=== PATIENT | male | born 1995 | race Caucasian/White ===

== ENCOUNTER 2020-06-03 02:22 | Emergency (ER) | payer MEDICAID, SELFPAY ==
[2020-06-03 02:37] VITALS: BP 200/96; PULSE 98; RESP 16; TEMP 36.9; O2SAT 97; BMI 31.2
--- NOTE | 2020-06-03 02:46 | XR_ITS ---
PROCEDURE: XR ANKLE LT MIN 3V CLINICAL INDICATION: edema Pain and discoloration COMPARISON: No exams were available for comparison FINDINGS: Mild soft tissue swelling laterally. No fracture or dislocation. No lytic or blastic change. IMPRESSION: Mild lateral soft tissue swelling Dictated by: Raji Sanders MD 06/03/2020 06:59 Raji Sanders MD in [place] 06/03/2020 06:59
--- NOTE | 2020-06-03 02:46 | XR_ITS ---
PROCEDURE: XR FOOT LT MIN 3V CLINICAL INDICATION: discoloration Pain COMPARISON: CR FTR3 FOOT-RT-3 VIEWS from 07/06/2015 CR FTR3 FOOT-RT-3 VIEWS from 02/28/2016 FINDINGS: No fracture or dislocation. No lytic or blastic change. There is normal mineralization. The joint spaces are well-preserved. No significant degenerative/arthritic changes. No erosive changes evident. Other findings:None. IMPRESSION: No acute findings. Dictated by: Raji Sanders MD 06/03/2020 07:00 Raji Sanders MD in [place] 06/03/2020 07:00
--- NOTE | 2020-06-03 02:53 | PC.NURSE ---
Pt states he started having cramps in the left lower leg , bvut noticed edema and discoloration tonight. Pt's left ankle has non-pitting edema and delayed cap refill in foot and toes >5sec denies pain and states the sensation is the same in both feet. Negative Homans sign. Pedal pulse palpable.
[2020-06-03 02:56] LABS: Basophils # 0.1 K/mm3 (0-0.2); Basophils % 0.5 % (0.1-2.0); Eosinophils # 0.4 K/mm3 (0.0-0.4); Eosinophils % 3.6 % (0.1-12.0); Hematocrit 45.4 % (42.0-52.0); Lymphocytes % 25.8 % (10-50); Mean Corpuscular Volume 84.7 fl (80-94); Mean Platelet Volume 7.3 fl (7.4-10.4); Monocytes # 0.7 K/mm3 (0.1-1.0); Monocytes % 5.8 % (1.7-9.3); Neutrophils # 7.4 K/mm3 (1.8-7.8); Neutrophils % 64.3 % (37.0-80.0); Platelet Count 342 K/mm3 (142-424); Red Blood Count 5.36 M/mm3 (4.60-6.20); Red Cell Distribution Width 12.9 % (11.5-17.5); White Blood Count 11.5 K/mm3 (4.8-10.8)
--- NOTE | 2020-06-03 03:00 | HMH.EDLOEX ---
ED Disposition Clinical Impression: Swelling of left foot, Elevated d-dimer Disposition: Home, Self-Care Condition on Discharge: Good Instructions: DI for Foot Pain Additional Instructions: will obtain doppler and ask pt to see podiatry Referrals: Man Morse MD [Primary Care Provider] - - Critical Care Critical Care Time: No Attestation: On 06/03/20, the high probability of a clinically significant, sudden or life threatening deterioration of the following system(s) required my full and direct attention, intervention and personal management. The time I documented below is in addition to time spent performing reported procedures but includes the following listed in this critical care notation. Medical Decision Making - Medical Records Medical records reviewed: Yes: I reviewed the patient's medical records. - Marcus Inquiry Pt receiving controlled substance: No Vital Signs: 06/03/20 02:37 Temperature 98.5 F Temperature Source Oral Pulse Rate [Right] 98 H Respiratory Rate 16 Blood Pressure [Right Arm] 200/96 H Blood Pressure Mean [Right Arm] 130 Blood Pressure Source [Right Arm] Manual Cuff/ Auscultation 02 Sat by Pulse Oximetry 97 Oxygen Delivery Method Room Air - Lab Data Lab results reviewed: Yes: I reviewed the patient's lab results. Lab Results 06/03/20 02:35: WBC 11.5 H, RBC 5.36, Hgb 15.0, Hct 45.4, MCV 84.7, MCH 28.0, MCHC 33.0, RDW 12.9, Plt Count 342, MPV 7.3 L, Neut % (Auto) 64.3, Lymph % (Auto) 25.8, [place] % (Auto) 5.8, Eos % (Auto) 3.6, Baso % (Auto) 0.5, Neut # (Auto) 7.4, Lymph # (Auto) 3.0, [place] # (Auto) 0.7, Eos # (Auto) 0.4, Baso # (Auto) 0.1, ESR 24 H 06/03/20 02:35: Sodium 143, Potassium 3.9, Chloride 105, Carbon Dioxide 27, Anion Gap 14.9, BUN 14, Creatinine 0.90, Estimated Creat Clear 199, Estimated GFR 102, Est GFR ( Amer) 123, Glucose 112 H, Calcium 10.1, Total Bilirubin 0.4, AST 41, ALT 36, Alkaline Phosphatase 93, C-Reactive Protein 51.8 H, Total Protein 8.6 H, Albumin 4.9, Globulin 3.7 H, Albumin/Globulin Ratio 1.3, Procalcitonin 0.040 06/03/20 02:35: Uric Acid 10.1 H 06/03/20 02:35: D-Dimer 1.24 H Result diagrams: 06/03/20 02:35 06/03/20 02:35 Orders (Tests/Meds): ED MEDICATIONS Discontinued Medications Generic Name Dose Route Start Last Admin Trade Name Sarah PRN Reason Stop Dose Admin Enoxaparin Sodium 110 mg 06/03/20 04:21 06/03/20 04:23 Enoxaparin 120mg/0.8ml Syringe SQ 06/03/20 04:22 110 mg ONCE ONE Administration Ketorolac Tromethamine 30 mg 06/03/20 03:15 06/03/20 03:23 Ketorolac 30mg/Ml Vial IV 06/03/20 03:16 30 mg ONCE ONE Administration Methylprednisolone Sodium Succinate 125 mg 06/03/20 03:15 06/03/20 03:22 Methylprednisolone Sod Succ 125mg Vial IV 06/03/20 03:16 125 mg ONCE ONE Administration ORDERS Category Date Time Status Ankle XR - Left minimum 3 Views [XR ankle LT min 3V] Exams 06/03/20 02:46 Taken Stat XR foot LT min 3V Stat Exams 06/03/20 02:46 Taken - Radiology Data #1 Image(s): Ankle, Foot/Toes Image Reviewed: Yes I reviewed the patient's radiology image Preliminary Findings: No Fracture Seen Medical Decision Narrative: will arrange venous doppler and see podiatry Lower Extremity Injury HPI - General Chief Complaint: Extremity Problem,Nontraumatic Stated Complaint: LFT foot/ankle swollen High BP Time Seen by Provider: 06/03/20 02:45 Mode of Arrival: Ambulatory Source of Information: Patient, Parent(s), Medical Record Limitations: No Limitations Description of Symptoms (Recalled from ER Triage Doc. by RN): Pt states he had what felt like a bad cramp in his lower leg starting 3 days ago and tonight foot become discolored. Pt denies pain and has negative Irina sign. - History of Present Illness HPI Narrative: pt with lt foot swollen over the last few days with no trauma - no hx of dvt - no hx of gout complaint: foot injury Onset (ago): hour(s) Injury: Left
[2020-06-03 03:02] LABS: Uric Acid 10.1 mg/dl (3.5-8.5)
[2020-06-03 03:03] LABS: Alanine Aminotransferase 36 U/L (12-78); Albumin Level 4.9 g/dl (3.5-5.0); Albumin/Globulin Ratio 1.3 (1.1-1.8); Alkaline Phosphatase 93 U/L (38-126); Anion Gap 14.9 mEq/L (5-15); Aspartate Amino Transferase 41 U/L (17-59); Bilirubin,Total 0.4 mg/dl (0.2-1.3); Blood Urea Nitrogen 14 mg/dl (9-20); Calcium 10.1 mg/dl (8.4-10.2); Carbon Dioxide 27 mmol/L (22.0-30.0); Chloride 105 mmol/L (98-107); Creatinine Clearance Estimated 199 mL/min (50-200); Estimated Glomerular Filt Rate 102 ml/min (>60); GFR (African American) 123 ML/MIN (>60); Globulin 3.7 g/dL (1.3-3.2); Glucose 112 mg/dl (74-100); Potassium 3.9 mmoL/L (3.5-5.1); Sodium 143 mmol/L (136-145); Total Protein,Serum 8.6 g/dl (6.3-8.2)
[2020-06-03 03:08] LABS: C-Reactive Protein 51.8 mg/L (0-4)
[2020-06-03 03:20] LABS: Erythrocyte Sedimentation Rate 24 mm/hr (0-15)
[2020-06-03 03:33] LABS: D-Dimer 1.24 ug/mL (0.0-0.5)
--- NOTE | 2020-06-03 04:20 | PC.NURSE ---
Lovenox dosing per Huong in Pharmacy
[2020-06-03 04:47] VITALS: BP 210/110; PULSE 86; RESP 16; O2SAT 97
[2020-06-03 04:57] VITALS: BP 210/97; PULSE 88; RESP 16; TEMP 36.9; O2SAT 97
== END 2020-06-03 05:02 | disposition home or self-care (01) ==
PROVIDERS: Emergency Provider Emergency Medicine; PCP Internal Medicine Adolescent Medicine
DX: M79.89 Other specified soft tissue disorders (principal); R03.0 Elevated blood-pressure reading, without diagnosis of hypertension
CPT/HCPCS: 73610; 73630; 80053; 84145; 84550; 85025; 85378; 85651; 86140; 96372; 96374; 96375; 99283

== ENCOUNTER → 2020-06-03 11:52 | Outpatient (CLI) | payer MEDICAID, SELFPAY ==
--- NOTE | 2020-06-03 11:53 | CA_ITS ---
APPROVED REPORT Left Lower Extremity Venous Study for DVT. Scrapper: TRAY Indications Lower Extremity Pain: Left Lower Extremity Edema: Left REDNESS LOWER EXTREMITY Vein Imaging CFV (L): compressive, spontaneous, phasic, augmentation, SFJ (L): compressive, spontaneous, phasic, augmentation FEM (L): compressive, spontaneous, phasic, augmentation POP (L): compressive, spontaneous, phasic, augmentation DFV (L): compressive, spontaneous, phasic, augmentation PTV (L): Compressible GSV (L): Compressible SSV (L): Compressible Peroneals (L):Compressible GAS (L): Compressible Findings No evidence of DVT or superficial thrombophlebitis in the veins scanned of the left lower extremity. Conclusion No evidence of DVT or superficial thrombophlebitis in the veins scanned of the left lower extremity. Electronically signed by : Raji Sanders MD 06/04/2020 14:57:16
== END ==
PROVIDERS: PCP Internal Medicine Adolescent Medicine; Visit Provider Emergency Medicine
DX: M79.662 Pain in left lower leg (principal); M79.89 Other specified soft tissue disorders
CPT/HCPCS: 93971

== ENCOUNTER 2020-07-23 16:27 | Emergency (ER) | payer MEDICAID, SELFPAY ==
--- NOTE | 2020-07-23 16:52 | XR_ITS ---
PROCEDURE INFORMATION: Exam: XR Right Shoulder Exam date and time: 07/23/2020 4:52 PM Age: 24 years old Clinical indication: Injury or trauma; Other: Lifiting something heavy; Blunt trauma (contusions or hematomas); Shoulder; Right; Additional info: Lifting weights injury TECHNIQUE: Imaging protocol: XR Right shoulder. Views: 2 or more views. COMPARISON: CR ELBR3 ELBOW-RT-3 VIEWS 01/15/2016 2:02 PM FINDINGS: Bones/joints: Normal. Soft tissues: Normal. IMPRESSION: No acute findings.
[2020-07-23 16:53] VITALS: BP 136/86; PULSE 96; RESP 19; TEMP 37.1; O2SAT 100; BMI 31.2
[2020-07-23 17:18] LABS: Uric Acid 10.4 mg/dl (3.5-8.5)
--- NOTE | 2020-07-23 17:19 | HMH.EDUTC ---
[facility] – [place], [place] Disposition Clinical Impression: Shoulder strain Qualifiers: Encounter type: initial encounter Laterality: right Qualified Code(s): S46.911A - Strain of unspecified muscle, fascia and tendon at shoulder and upper arm level, right arm, initial encounter Gout attack Qualifiers: Gout site: elbow Gout etiology: unspecified cause Laterality: left Qualified Code(s): M10.9 - Gout, unspecified Disposition: Home, Self-Care Condition on Discharge: Good Instructions: Gout, DI for Gout, How To Perform RICE (Rest, Ice, Compress, Elevate), DI for Shoulder Pain Additional Instructions: *RICE, Rest the extremity, Ice 15-20 minutes 3-4 times daily, Compress- wear the rosalind wrap as discussed as much as possible to help reduce swelling and pain, Elevate the extremity when at rest *Remember you had a Toradol shot in the clinic today, which is similar to Endomethacin so do not start Endomethacin until tomorrow *Not additional anti-inflammatory like motrin, aleve, advil with the above amount of Endomethacin. You can still take Tylenol every 4 hours as needed if you need something else for pain *Ice 20 minutes every 2 hours for the first 48 hours after the initial injury followed by moist heat every 20 minutes 3-4 times a day to affected area *Muscle relaxer every 8 hours as needed for muscle spasms but remember, it WILL cause drowsiness You cannot take it and drive, operate machinery or care for small children. *Keep this area active, no movement leads to more stiffness, However take it easy and avoid heavy lifting pushing or pulling *Follow up with you family doctor if no improvement for further treatment and for further evaluation and treatment of gout *Indomethacin every 8 hours as needed for pain an inflammation. Do not start until 07/24/20 If need something more can take Tylenol in between doses of Ibuprofen to help Immediately follow up with your family doctor for new or worsening of symptoms, or no noticeable improvement over the next 3-5 days Prescriptions: Cyclobenzaprine HCl [Flexeril 10mg tablet] 5 mg PO TID PRN #12 tab PRN Reason: Muscle Spasm Transmission Status: Received by [employer] #[id number] Indomethacin 50 mg PO TID #15 cap Transmission Status: Received by [employer] #[id number] Referrals: Man Morse MD [Primary Care Provider] - As needed Time of Disposition: 18:13 Medical Decision Making - Marcus Inquiry Pt receiving controlled substance: No Marcus was queried for this patient: No Vital Signs: 07/23/20 16:53 Temperature 98.8 F Temperature Source Oral Pulse Rate [Right Brachial] 96 H Respiratory Rate 19 Blood Pressure [Right Arm] 136/86 Blood Pressure Mean [Right Arm] 102 Blood Pressure Source [Right Arm] Automatic Cuff Blood Pressure Position [Right Arm] Sitting 02 Sat by Pulse Oximetry 100 Oxygen Delivery Method Room Air - Lab Data Lab Results 07/23/20 16:55: Uric Acid 10.4 H Orders (Tests/Meds): ED MEDICATIONS Discontinued Medications Generic Name Dose Route Start Last Admin Trade Name Freq PRN Reason Stop Dose Admin Ketorolac Tromethamine 60 mg 07/23/20 18:06 07/23/20 18:22 Ketorolac 60mg/2ml Vial IM 07/23/20 18:07 60 mg ONCE ONE Administration Methylprednisolone Sodium Succinate 125 mg 07/23/20 18:06 07/23/20 18:18 Methylprednisolone Sod Succ 125mg Vial IM 07/23/20 18:07 125 mg ONCE ONE Administration ORDERS Category Date Time Status XR shoulder RT min 2V Stat Exams 07/23/20 16:52 Taken - Radiology Data #1 Image(s): Shoulder (right) Image Reviewed: Yes I reviewed the patient's radiology image Preliminary Findings: No Fracture Seen [facility] – [place], [place] HPI - General Stated complaint: possible pulled muscle in R shoulder Time Seen by Provider: 07/23/20 17:19 Mode of Arrival: Ambulatory Source of Information: Patient Limitations: No Limitations Description of Symptoms (Recalled from Triage Doc. by RN): RIGHT SHOULDER PAIN X1 WEEK HEENT
[2020-07-23 18:37] VITALS: BP 136/86; PULSE 96; RESP 19; TEMP 37.1; O2SAT 100
== END 2020-07-23 18:38 | disposition home or self-care (01) ==
PROVIDERS: Emergency Provider Nurse Practitioner; PCP Internal Medicine Adolescent Medicine
DX: S46.911A Strain of unspecified muscle, fascia and tendon at shoulder and upper arm level, right arm, initial encounter (principal); X50.0XXA Overexertion from strenuous movement or load, initial encounter; Y92.89 Other specified places as the place of occurrence of the external cause; M1A.0220 Idiopathic chronic gout, left elbow, without tophus (tophi)
CPT/HCPCS: 73030; 84550; 96372; 99202; G0463

== ENCOUNTER → 2020-07-25 09:50 | Outpatient (CLI) | payer MEDICAID, SELFPAY ==
--- NOTE | 2020-07-25 10:03 | XR_ITS ---
PROCEDURE: XR HAND LT MIN 3V CLINICAL INDICATION: ARTHRITIS COMPARISON: No exams were available for comparison FINDINGS: No fracture or dislocation. No lytic or blastic change. There is normal mineralization. The joint spaces are well-preserved. No significant degenerative/arthritic changes. No erosive changes evident. Other findings:None. IMPRESSION: Negative left hand Dictated by: Raji Sanders MD 07/25/2020 10:16 Raji Sanders MD in [place] 07/25/2020 10:16
--- NOTE | 2020-07-25 10:03 | XR_ITS ---
PROCEDURE: XR HAND RT MIN 3V CLINICAL INDICATION: ARTHRITIS COMPARISON: No exams were available for comparison FINDINGS: No fracture or dislocation. No lytic or blastic change. There is normal mineralization. The joint spaces are well-preserved. No significant degenerative/arthritic changes. No erosive changes evident. Other findings:None. IMPRESSION: No acute findings. Dictated by: Raji Sanders MD 07/25/2020 10:15 Raji Sanders MD in [place] 07/25/2020 10:15
[2020-07-25 10:17] LABS: Basophils % 0.3 % (0.1-2.0); Eosinophils # 0.2 K/mm3 (0.0-0.4); Eosinophils % 1.6 % (0.1-12.0); Hematocrit 41.2 % (42.0-52.0); Hemoglobin 13.6 g/dL (14.1-18.0); Lymphocytes # 3.3 K/mm3 (0.7-4.5); Lymphocytes % 27.3 % (10-50); Mean Corpuscular Hemoglobin 27.7 pg (27.0-31.2); Monocytes # 0.6 K/mm3 (0.1-1.0); Monocytes % 4.8 % (1.7-9.3); Platelet Count 429 K/mm3 (142-424); Red Blood Count 4.91 M/mm3 (4.60-6.20); Red Cell Distribution Width 12.5 % (11.5-17.5); White Blood Count 12.2 K/mm3 (4.8-10.8)
[2020-07-25 11:18] LABS: Alanine Aminotransferase 46 U/L (12-78); Albumin Level 4.4 g/dl (3.5-5.0); Albumin/Globulin Ratio 1.4 (1.1-1.8); Alkaline Phosphatase 89 U/L (38-126); Anion Gap 15.4 mEq/L (5-15); Aspartate Amino Transferase 43 U/L (17-59); Bilirubin,Total 0.3 mg/dl (0.2-1.3); Blood Urea Nitrogen 16 mg/dl (9-20); Calcium 9.8 mg/dl (8.4-10.2); Carbon Dioxide 25 mmol/L (22.0-30.0); Chloride 107 mmol/L (98-107); Estimated Glomerular Filt Rate 102 ml/min (>60); GFR (African American) 123 ML/MIN (>60); Globulin 3.2 g/dL (1.3-3.2); Glucose 97 mg/dl (74-100); Potassium 4.4 mmoL/L (3.5-5.1); Sodium 143 mmol/L (136-145); Total Protein,Serum 7.6 g/dl (6.3-8.2)
[2020-07-25 11:23] LABS: C-Reactive Protein 41.9 mg/L (0-4)
[2020-07-25 18:00] LABS: Erythrocyte Sedimentation Rate 53 mm/hr (0-15)
[2020-07-26 08:43] LABS: RA Latex Turbid. 11.3 IU/mL (0.0-13.9)
[2020-07-27 00:05] LABS: Anti-Centromere B Antibodies <0.2 AI (0.0-0.9); Anti-Jo-1 <0.2 AI (0.0-0.9); Anti-Smith Antibody <0.2 AI (0.0-0.9); Antichromatin Antibodies <0.2 AI (0.0-0.9); Antiscleroderma-70 Antibodies <0.2 AI (0.0-0.9); RNP Antibodies <0.2 AI (0.0-0.9); Sjogren's Anti-SS-A <0.2 AI (0.0-0.9); Sjogren's Anti-SS-B <0.2 AI (0.0-0.9)
[2020-07-27 10:12] LABS: Anti-Cyclic Citrullinated Pept <1 units (0-19)
[2020-07-27 10:13] LABS: Anti-DNA (DS) Ab Qn <1 IU/mL (0-9)
== END ==
PROVIDERS: Visit Provider Internal Medicine Adolescent Medicine
DX: M19.90 Unspecified osteoarthritis, unspecified site (principal); M10.9 Gout, unspecified
CPT/HCPCS: 36415; 73130; 80053; 85025; 85651; 86140; 86200; 86225; 86235; 86431

== ENCOUNTER → 2021-01-08 09:58 | Outpatient (CLI) | payer MEDICAID, SELFPAY | PROVIDERS: PCP Internal Medicine Adolescent Medicine; Visit Provider Nurse Practitioner | DX: Z20.822 Contact with and (suspected) exposure to COVID-19 (principal) | CPT/HCPCS: C9803; U0003; U0005 ==

== ENCOUNTER → 2021-01-15 14:24 | Outpatient (CLI) | payer MEDICAID, SELFPAY | PROVIDERS: PCP Internal Medicine Adolescent Medicine; Visit Provider Nurse Practitioner | DX: Z20.822 Contact with and (suspected) exposure to COVID-19 (principal) | CPT/HCPCS: C9803; U0003; U0005 ==

== ENCOUNTER 2021-03-18 22:16 | Emergency (ER) | payer MEDICAID, SELFPAY ==
[2021-03-18 22:17] VITALS: BP 137/91; PULSE 85; RESP 16; TEMP 36.7; O2SAT 99; BMI 31.2
--- NOTE | 2021-03-18 22:22 | ECG_ITS ---
APPROVED REPORT Exam: Resting ECG HR:85 bpm ECG Measurements Heart Rate 85 AXES CO 148 P 40 QRSd 84 QRS 44 QT 350 T -41 QTc 416 Conclusion Normal sinus rhythm T wave abnormality, consider inferior ischemia Abnormal ECG Electronically signed by : Man Morse MD 03/19/2021 21:03:51
[2021-03-18 22:55] LABS: Alanine Aminotransferase 25 U/L (12-78); Albumin Level 4.6 g/dl (3.5-5.0); Albumin/Globulin Ratio 1.5 (1.1-1.8); Alkaline Phosphatase 75 U/L (38-126); Anion Gap 11.8 mEq/L (5-15); Aspartate Amino Transferase 34 U/L (17-59); Basophils # 0.1 K/mm3 (0-0.2); Basophils % 0.6 % (0.1-2.0); Bilirubin,Total 0.4 mg/dl (0.2-1.3); Blood Urea Nitrogen 18 mg/dl (9-20); Calcium 9.9 mg/dl (8.4-10.2); Carbon Dioxide 32 mmol/L (22.0-30.0); Chloride 102 mmol/L (98-107); Creatinine Clearance Estimated 137 mL/min (50-200); Eosinophils # 0.5 K/mm3 (0.0-0.4); Eosinophils % 3.8 % (0.1-12.0); Estimated Glomerular Filt Rate 66 ml/min (>60); GFR (African American) 80 ML/MIN (>60); Glucose 67 mg/dl (74-100); Hematocrit 41.5 % (42.0-52.0); Hemoglobin 14.4 g/dL (14.1-18.0); Lymphocytes # 2.5 K/mm3 (0.7-4.5); Lymphocytes % 20.6 % (10-50); Mean Corpuscular HGB Conc 34.7 g/dL (31.8-35.4); Mean Corpuscular Hemoglobin 29.9 pg (27.0-31.2); Mean Corpuscular Volume 86.4 fl (80-94); Mean Platelet Volume 7.3 fl (7.4-10.4); Monocytes # 0.8 K/mm3 (0.1-1.0); Monocytes % 6.6 % (1.7-9.3); Neutrophils # 8.4 K/mm3 (1.8-7.8); Neutrophils % 68.5 % (37.0-80.0); Platelet Count 306 K/mm3 (142-424); Potassium 3.8 mmoL/L (3.5-5.1); Red Blood Count 4.81 M/mm3 (4.60-6.20); Red Cell Distribution Width 12.5 % (11.5-17.5); Sodium 142 mmol/L (136-145); Total Protein,Serum 7.6 g/dl (6.3-8.2); White Blood Count 12.3 K/mm3 (4.8-10.8)
--- NOTE | 2021-03-18 22:58 | HMH.EDARPALP ---
ED Disposition Clinical Impression: SVT (supraventricular tachycardia) Disposition: Home, Self-Care Condition on Discharge: Good Instructions: DI for Palpitations Additional Instructions: see card in am Referrals: Dilcia Abrams APRN [Primary Care Provider] - Cecil Law MD [Staff Physician] - - Critical Care Critical Care Time: No Attestation: On 03/18/21, the high probability of a clinically significant, sudden or life threatening deterioration of the following system(s) required my full and direct attention, intervention and personal management. The time I documented below is in addition to time spent performing reported procedures but includes the following listed in this critical care notation. Medical Decision Making - Medical Records Medical records reviewed: Yes: I reviewed the patient's medical records. - Marcus Inquiry Pt receiving controlled substance: No Vital Signs: 03/18/21 22:17 Temperature 98.0 F Temperature Source Oral Pulse Rate [Apical] 85 Respiratory Rate 16 Blood Pressure [Right Arm] 137/91 H Blood Pressure Mean [Right Arm] 106 Blood Pressure Source [Right Arm] Automatic Cuff Blood Pressure Position [Right Arm] Sitting 02 Sat by Pulse Oximetry 99 Oxygen Delivery Method Room Air - Lab Data Lab results reviewed: Yes: I reviewed the patient's lab results. Lab Results 03/18/21 22:20: WBC 12.3 H, RBC 4.81, Hgb 14.4, Hct 41.5 L, MCV 86.4, MCH 29.9, MCHC 34.7, RDW 12.5, Plt Count 306, MPV 7.3 L, Neut % (Auto) 68.5, Lymph % (Auto) 20.6, [place] % (Auto) 6.6, Eos % (Auto) 3.8, Baso % (Auto) 0.6, Neut # (Auto) 8.4 H, Lymph # (Auto) 2.5, [place] # (Auto) 0.8, Eos # (Auto) 0.5 H, Baso # (Auto) 0.1 03/18/21 22:20: Sodium 142, Potassium 3.8, Chloride 102, Carbon Dioxide 32 H, Anion Gap 11.8, BUN 18, Creatinine 1.30 H, Estimated Creat Clear 137, Estimated GFR 66, Est GFR ( Amer) 80, Glucose 67 L, Calcium 9.9, Total Bilirubin 0.4, AST 34, ALT 25, Alkaline Phosphatase 75, Troponin I 0.01, C-Reactive Protein 4.3 H, Total Protein 7.6, Albumin 4.6, Globulin 3.0, Albumin/Globulin Ratio 1.5, TSH 4.71 H 03/18/21 22:20: Free T4 0.92 03/18/21 22:20: Procalcitonin 0.044 Result diagrams: 03/18/21 22:20 03/18/21 22:20 Orders (Tests/Meds): ORDERS Category Date Time Status Chest XR 2 view (NOT portable) [XR chest 2V] Stat Exams 03/18/21 23:17 Taken Complete Blood Count Auto Diff Stat Lab 03/18/21 22:20 Results Erythrocyte Sedimentation Rate Stat Lab 03/18/21 22:20 Results Triiodothyronine (T3) Total Stat Lab 03/18/21 22:20 Received Troponin I Q3H Lab 03/19/21 01:45 Ordered Troponin I Q3H Lab 03/19/21 04:45 Ordered 12-lead EKG Request [ECG Request by /Daniel] Stat Y 03/18/21 22:30 Ordered - Radiology Data #1 Image(s): Chest Image Reviewed: Yes I reviewed the patient's radiology image Preliminary Findings: Normal/NAD - ECG Data Tracing #1 Arrhythmias present: PSVT Ischemic changes: non-specific ST-T wave changes Tracing #2 Normal Sinus Rhythm: Yes Ischemic changes: non-specific ST-T wave changes - Physician Consults Physician Consulted: donna Reason -: Pt condition Medical Decision Narrative: doing better and will see card - used vagal to break svat Arrhythmia/Palpitations HPI - General Chief Complaint: Chest Pain Stated Complaint: chest pain Time Seen by Provider: 03/18/21 22:25 Mode of Arrival: Ambulatory Source of Information: Patient, Medical Record Limitations: No Limitations - History of Present Illness HPI narrative: chest pain assoc with fast hr over the last 2 hrs MD complaint: heart racing Onset (ago): hour(s) Duration: constant Severity: moderate Context: occurred during rest Associated symptoms: denies other symptoms - Related Data Allergies Allergy/AdvReac Type Severity Reaction Status Date / Time No Known Allergies Allergy Verified 03/18/21 22:28 [facility] History - Hepatitis A Screen Drug use hist
[2021-03-18 23:01] LABS: C-Reactive Protein 4.3 mg/L (0-4)
[2021-03-18 23:09] LABS: Troponin I 0.01 ng/ml (0.00-0.034)
[2021-03-18 23:13] LABS: Procalcitonin 0.044 ng/mL (0.0-2.0)
[2021-03-18 23:16] LABS: Free T4 (Free Thyroxine) 0.92 ng/dl (0.78-2.19)
--- NOTE | 2021-03-18 23:17 | XR_ITS ---
PROCEDURE INFORMATION: Exam: XR Chest Exam date and time: 03/18/2021 11:17 PM Age: 25 years old Clinical indication: Sternal or substernal pain; Patient HX: Chest pain / heart palpitations that started tonight. TECHNIQUE: Imaging protocol: XR of the chest. Views: 2 views. COMPARISON: No relevant prior studies available. FINDINGS: Lungs: Unremarkable. No consolidation. Pleural spaces: No pleural effusion. No pneumothorax. Heart/Mediastinum: Normal heart size. Bones/joints: Unremarkable. IMPRESSION: No acute findings.
[2021-03-18 23:26] LABS: Thyroid Stimulating Hormone 4.71 uIU/mL (0.465-4.68)
[2021-03-19 00:09] VITALS: BP 109/75; PULSE 85; RESP 18; TEMP 36.7; O2SAT 99
[2021-03-19 00:23] LABS: Erythrocyte Sedimentation Rate 19 mm/hr (0-15)
[2021-03-20 09:13] LABS: Triiodothyronine (T3) Total 86 ng/dL (71-180)
== END 2021-03-19 00:15 | disposition home or self-care (01) ==
PROVIDERS: Emergency Provider Emergency Medicine; PCP Nurse Practitioner Family
DX: I47.1 Supraventricular tachycardia (principal); R07.9 Chest pain, unspecified
CPT/HCPCS: 71046; 80053; 84145; 84439; 84443; 84480; 84484; 85025; 85651; 86140; 93005; 99283

== ENCOUNTER → 2021-03-19 11:26 | Outpatient (CLI) | payer MEDICAID, SELFPAY | PROVIDERS: PCP Nurse Practitioner Family; Visit Provider Physician Assistant | DX: R06.00 Dyspnea, unspecified (principal); R00.2 Palpitations; I47.1 Supraventricular tachycardia; R94.31 Abnormal electrocardiogram [ECG] [EKG] | CPT/HCPCS: 93270 ==

== ENCOUNTER → 2021-04-18 12:44 | Outpatient (CLI) | payer MEDICAID, SELFPAY ==
--- NOTE | 2021-04-18 12:45 | CA_ITS ---
APPROVED REPORT EXAM: Comprehensive 2D, Doppler, and color-flow Echocardiogram Entry Level Web Developer: Merissa Vigil RVT Ht: 6 ft 3 in Wt: 256lbs BSA: 2.44 BP: 136/81 mmHg Indications: PALPS,MHX SVT,ABN EKG,CASTELLON 2D Dimensions LVOT 2.40 cm (M/F) 1.5-2.5 LA Volume 25.10 mL LA Volume Index 10.32 mL/m2 (M/F) 16-34 M-Mode Dimensions RVDd 3.21 cm (0.9-2.6) LA Diam 3.89 cm (1.9-4.0) LVDd 3.98 cm (3.5-5.7) Ao Diam 3.35 cm (2.0-3.7) LVDs 1.73 cm (3.5-5.7) IVSd 1.04 cm (0.6-1.1) PWd 0.60 cm (0.6-1.1) EF (Teich) 87.30% FS 56.50% EDV (Teich) 69.20 mL TAPSE 1.75 (<1.7) ESV (Teich) 8.80 mL LV Diastology E Decel Time 180.00 (160-240 msec) E/A Ratio 1.1 MED E' 8.40 (< 7 cm/sec) E'/MED E' Ratio 9.56 (>14) LAT E' 12.10 (<10 cm/sec) E/LAT E' Ratio 6.64 (>14) Mitral Valve MV E Max Galileo. 80.00 (40-130 cm/s) MV A Velocity 71.00 (40-130 cm/s) E/A Ratio 1.13 MV Decel. Time 180.00 (160-240 ms) MV PHT 53.00 ms Pulmonary Valve PV Peak Velocity 66.00 (50-150 cm/s) Left Ventricle Left atrium is normal size, left ventricle is normal size, there is no concentric left ventricular hypertrophy, visually estimated ejection fraction 55% with no regional wall motion abnormality, diastolic parameters are within normal range. Right Ventricle Right atrium is normal size, right ventricle is mildly enlarged with normal contractility. Aortic Valve Aortic valve is grossly normal, there is no aortic stenosis or aortic insufficiency. Mitral Valve Mitral valve is grossly normal, there is trace mitral regurgitation. Tricuspid Valve Tricuspid valve grossly normal, there is trace tricuspid regurgitation, tricuspid regurgitation jet velocity is inadequate for calculation of the right ventricular systolic pressure. Pulmonic Valve Pulmonic valve is poorly visualized. Great Vessels Aortic root is normal size. Inferior vena cava is poorly visualized. Pericardium No significant pericardial effusion noted. Conclusion 1. Normal left ventricular size, preserved left ventricular systolic function, visually estimated ejection fraction 55% with no regional wall motion abnormality, diastolic parameters are within normal range. 2. Trace mitral and tricuspid regurgitation. 3. Right ventricle is mildly enlarged with normal contractility. 4. No significant pericardial effusion 5. Inferior vena cava is poorly visualized. Electronically signed by : Chnaning Ibrahim MD 04/19/2021 12:53:04
== END ==
PROVIDERS: PCP Nurse Practitioner Family; Visit Provider Physician Assistant
DX: R06.00 Dyspnea, unspecified (principal); I47.1 Supraventricular tachycardia; R00.2 Palpitations; R94.31 Abnormal electrocardiogram [ECG] [EKG]
CPT/HCPCS: 93306

== ENCOUNTER → 2021-04-25 08:02 | Outpatient (CLI) | payer MEDICAID, SELFPAY ==
--- NOTE | 2021-04-25 08:03 | CA_ITS ---
FINAL REPORT TECHNIQUE: Grayscale, color Doppler and duplex Doppler ultrasound of the kidneys, aorta and renal arteries was performed. Multiple velocities were measured. CLINICAL HISTORY: HTN FINDINGS: Aorta velocity: 159.4 cm/sec Right kidney: 12.6 cm. No evidence of hydronephrosis or mass. Right intrarenal RI: 0.6 Right renal artery velocity: 170.0 cm/sec. Right RAR (Renal artery-Aortic Ratio): 1.06 Left Kidney: 13.8 cm. No evidence of hydronephrosis or mass. Left intrarenal RI: 0.6 Left renal artery velocity: 151.0 cm/sec. Left RAR (Renal Artery-Aortic Ratio): 0.95 IMPRESSION: No evidence of significant renal artery stenosis. Kidneys have a normal echogenicity with no hydronephrosis. CT angiogram or postcontrast MR angiogram would be more sensitive for evaluation of possible renal artery stenosis. Reviewed, Interpreted and Dictated by Joe Moraes MD Transcribed by Anum Logan Authenticated by Joe Moraes MD on 04/25/2021 10:26:[address] [facility]
== END ==
PROVIDERS: PCP Nurse Practitioner Family; Visit Provider Physician Assistant
DX: I10 Essential (primary) hypertension (principal)
CPT/HCPCS: 93976

== ENCOUNTER → 2021-06-13 14:52 | Outpatient (CLI) | payer MEDICAID, SELFPAY | PROVIDERS: PCP Nurse Practitioner Family; Visit Provider Internal Medicine Pulmonary Disease | DX: R06.00 Dyspnea, unspecified (principal) | CPT/HCPCS: 94070; 94762; 95070; J7674 ==

== ENCOUNTER → 2021-07-02 12:45 | Outpatient (CLI) | payer MEDICAID, SELFPAY ==
[2021-07-02 16:25] LABS: C-Reactive Protein 4.9 mg/L (0-4)
[2021-07-10 02:08] LABS: D001-IgE D pteronyssinus <0.10 kU/L (Class 0); D002-IgE D farinae <0.10 kU/L (Class 0); E005-IgE Dog Dander 1.79 kU/L (Class III); E072-IgE Mouse Urine 0.46 kU/L (Class I); G002-IgE Bermuda Grass <0.10 kU/L (Class 0); G006-IgE Timothy Grass <0.10 kU/L (Class 0); I006-IgE Cockroach, German <0.10 kU/L (Class 0); Immunoglobulin E, Total 75 IU/mL (6-495); M001-IgE Penicillium chrysogen <0.10 kU/L (Class 0); M002-IgE Cladosporium herbarum <0.10 kU/L (Class 0); M003-IgE Aspergillus fumigatus <0.10 kU/L (Class 0); M006-IgE Alternaria alternata <0.10 kU/L (Class 0); T001-IgE Maple/Box Elder <0.10 kU/L (Class 0); T003-IgE Common Silver Birch <0.10 kU/L (Class 0); T006-IgE Cedar, Mountain <0.10 kU/L (Class 0); T007-IgE Oak, White <0.10 kU/L (Class 0); T008-IgE Elm, American <0.10 kU/L (Class 0); T010-IgE Walnut <0.10 kU/L (Class 0); T011-IgE Maple Leaf Sycamore <0.10 kU/L (Class 0); T014-IgE Cottonwood <0.10 kU/L (Class 0); T015-IgE Ash, White <0.10 kU/L (Class 0); T022-IgE Pecan, Hickory <0.10 kU/L (Class 0); T070-IgE White Mulberry <0.10 kU/L (Class 0); W001-IgE Ragweed, Short <0.10 kU/L (Class 0); W011-IgE Thistle, Russian <0.10 kU/L (Class 0); W014-IgE Pigweed, Common <0.10 kU/L (Class 0); W018-IgE Sheep Sorrel <0.10 kU/L (Class 0)
== END ==
PROVIDERS: Visit Provider Internal Medicine Pulmonary Disease
DX: R06.00 Dyspnea, unspecified (principal)
CPT/HCPCS: 36415; 82785; 86003; 86140

== ENCOUNTER 2021-09-26 02:07 | Emergency (ER) | payer MEDICAID, SELFPAY ==
[2021-09-26 02:08] VITALS: BP 130/91; PULSE 103; RESP 20; TEMP 36.6; O2SAT 97; BMI 31.2
[2021-09-26 02:40] VITALS: BMI 31.2
--- NOTE | 2021-09-26 02:43 | XR_ITS ---
PROCEDURE INFORMATION: Exam: XR Right Hand Exam date and time: 09/26/2021 2:49 AM Age: 25 years old Clinical indication: Injury or trauma; Other: Dog bite; Laceration; Hand; Right TECHNIQUE: Imaging protocol: Radiologic exam of the Right hand. Views: 3 or more views. COMPARISON: No relevant prior studies available. FINDINGS: Bones/joints: Normal. Soft tissues: Normal. IMPRESSION: No acute findings.
--- NOTE | 2021-09-26 03:15 | HMH.EDANIB ---
ED Disposition Clinical Impression: Dog bite Qualifiers: Encounter type: initial encounter Qualified Code(s): W54.0XXA - Bitten by dog, initial encounter Laceration of hand Qualifiers: Encounter type: initial encounter Foreign body presence: without foreign body Laterality: right Qualified Code(s): S61.411A - Laceration without foreign body of right hand, initial encounter Disposition: Home, Self-Care Condition on Discharge: Good Instructions: Animal Bites Additional Instructions: sutures out 10 days and call pcp in am for follow up Prescriptions: Amoxicillin/Potassium Clav [Augmentin 500mg tab] 500 mg PO TID #30 tab Transmission Status: Pending to [facility] #[id number] Referrals: Dilcia Abrams APRN [Primary Care Provider] - - Critical Care Critical Care Time: No Attestation: On 09/26/21, the high probability of a clinically significant, sudden or life threatening deterioration of the following system(s) required my full and direct attention, intervention and personal management. The time I documented below is in addition to time spent performing reported procedures but includes the following listed in this critical care notation. Medical Decision Making - Medical Records Medical records reviewed: Yes: I reviewed the patient's medical records. - Marcus Inquiry Pt receiving controlled substance: No Vital Signs: 09/26/21 02:08 Temperature 97.9 F Temperature Source Oral Pulse Rate [Left] 103 H Respiratory Rate 20 Blood Pressure [Left Arm] 130/91 H Blood Pressure Mean [Left Arm] 104 Blood Pressure Source [Left Arm] Automatic Cuff 02 Sat by Pulse Oximetry 97 Oxygen Delivery Method Room Air Orders (Tests/Meds): ED MEDICATIONS Discontinued Medications Generic Name Dose Route Start Last Admin Trade Name Freq PRN Reason Stop Dose Admin Rabies Immune Globulin 1,500 unit 09/26/21 03:34 09/26/21 04:01 Rabies Immune Globulin/Pf 300 Unit/Ml Vial IM 09/26/21 03:35 Not Given ONCE ONE Rabies Immune Globulin 2,060 unit 09/26/21 04:01 09/26/21 04:02 Rabies Immune Globulin/Pf 300 Unit/Ml Vial IM 09/26/21 04:02 2,060 unit ONCE ONE Administration Rabies Vaccine 2.5 unit 09/26/21 03:34 09/26/21 04:11 Rabies Vaccine (Pcec)/Pf 2.5 Unit Vial IM 09/26/21 03:35 2.5 unit .ONCE ONE Administration ORDERS Category Date Time Status XR hand RT min 3V Stat Exams 09/26/21 02:43 Taken - Radiology Data #1 Image(s): Hand Image Reviewed: Yes I have reviewed radiologist's interpretation Preliminary Findings: No Fracture Seen Medical Decision Narrative: pt with possible rabies exposure and will need treatment and will need abx and f/u with pcp Animal Bite HPI - General Chief Complaint: Animal Bite Stated Complaint: AO Dog bite Right hand Time Seen by Provider: 09/26/21 02:15 Mode of Arrival: Family Vehicle Source of Information: Patient, Spouse, Medical Record Limitations: No Limitations Description of Symptoms (Recalled from ER Triage Doc. by RN): Pt c/o dog bite to R hand. States he went outside to [facility] and a strange dog came up to him. He attempted to pet the dog when it bit his hand. He denies knowing the lens finisher or seeing this dog before. States it was not wearing a collar. Tdap is up-to-date, 2019. Denies using blood thinners. Denies any other injury. States after he got the dog off of him he rinsed it and wrapped an ice pack and rosalind wrap around his hand. Radial pulse 3+, [employer] 2 sec. Pt is able to move all fingers. - History of Present Illness HPI narrative: rt hand dog bite tonight by unk dog - unprovoked - MD complaint: animal bite Onset (ago): hour(s) Animal: dog Description of animal: unknown animal, immunizations unknown Mechanism: bite Right: hand Context: unprovoked Associated symptoms: none - Related Data Patient tetanus UTD: Yes Home Medications Medication Instructions Recorded Confirmed allopurinol 300 mg tablet 300 mg PO
--- NOTE | 2021-09-26 04:12 | PC.NURSE ---
Rabies Immune Globulin lot [id number], Exp 17-Apr-2023 Dosed per Regine @ [facility]. half of dose (3.4 ml) surrounding to bite wounds, and the other half (3.4ml) to contralateral arm IM. (Left deltoid).
[2021-09-26 05:09] VITALS: BP 129/87; PULSE 89; RESP 18; TEMP 36.7; O2SAT 98
== END 2021-09-26 05:16 | disposition home or self-care (01) ==
PROVIDERS: Emergency Provider Emergency Medicine; PCP Nurse Practitioner Family
DX: S61.411A Laceration without foreign body of right hand, initial encounter (principal); W54.0XXA Bitten by dog, initial encounter; Z23 Encounter for immunization; Z79.899 Other long term (current) drug therapy; I10 Essential (primary) hypertension
CPT/HCPCS: 12002; 73130; 90375; 90471; 90675; 99284

== ENCOUNTER 2021-09-28 13:01 | Emergency (ER) | payer MEDICAID, SELFPAY ==
[2021-09-28 13:58] VITALS: BP 141/85; PULSE 89; RESP 16; TEMP 36.9; O2SAT 95; BMI 31.2
--- NOTE | 2021-09-28 14:06 | HMH.EDUTC ---
[facility] Disposition Clinical Impression: Need for rabies vaccination Disposition: Home, Self-Care Condition on Discharge: Good Instructions: Rabies Vaccine, DI for Rabies Vaccine Additional Instructions: Take tylenol or ibuprofen for pain or fever. Continue with your rabies shot schedule. GO TO THE ER FOR ANY WORSENING SYMPTOMS OR CONCERNS Referrals: Dilcia Abrams APRN [Primary Care Provider] - Time of Disposition: 14:32 Medical Decision Making - Medical Records Medical records reviewed: No: I reviewed the patient's medical records. - Marcus Inquiry Pt receiving controlled substance: No Vital Signs: 09/28/21 13:58 09/28/21 14:55 Temperature 98.5 F 98.5 F Temperature Source Oral Pulse Rate 89 Pulse Rate [Left] 89 Respiratory Rate 16 16 Blood Pressure 141/85 H Blood Pressure [Right Arm] 141/85 H Blood Pressure Mean [Right Arm] 103 02 Sat by Pulse Oximetry 95 Orders (Tests/Meds): ED MEDICATIONS Discontinued Medications Generic Name Dose Route Start Last Admin Trade Name Freq PRN Reason Stop Dose Admin Rabies Vaccine 2.5 unit 09/28/21 14:14 09/28/21 14:25 Rabies Vaccine (Pcec)/Pf 2.5 Unit Vial IM 09/28/21 14:15 2.5 unit .ONCE ONE Administration [facility] HPI - General Stated complaint: rabies vaccine Time Seen by Provider: 09/28/21 14:06 Description of Symptoms (Recalled from Triage Doc. by RN): patient comes in today for second dose of rabies vaccine. HEENT Symptoms (Recalled from RN notes): No Resp Symptoms (Recalled from RN notes): No Skin Symptoms (Recalled from RN notes): No MS Symptoms (Recalled from RN notes): No Functional Status (Recalled from RN notes): wnl - History of Present Illness Provider Complaint: He was bit by a stray dog that ran off 3 days ago. He camet to the er here and started on rabies shots. He is back for his second shot. - Related Data Home Medications Medication Instructions Recorded Confirmed allopurinol 300 mg tablet 300 mg PO DAILY tab 03/19/21 07/02/21 cetirizine 10 mg tablet 10 mg PO DAILY PRN 03/19/21 07/02/21 hydrochlorothiazide 25 mg tablet 25 mg PO DAILY tab 03/19/21 07/02/21 lisinopril 20 mg tablet 20 mg PO DAILY tab 03/19/21 07/02/21 levothyroxine 25 mcg capsule 25 mcg PO DAILY 05/29/21 07/02/21 omega 3-dha 250 mg-epa 350 mg-fish cap PO 05/29/21 07/02/21 oil 1,000 mg capsule Previous Rx's Medication Instructions Recorded Indomethacin 50 mg PO TID #15 cap 07/23/20 metoprolol succinate 25 mg 25 mg PO BID #60 tab 04/22/21 tablet,extended release 24 hr azelastine 205.5 mcg (0.15 %) 2 spray INTRANASAL HS 90 Days #30 05/29/21 nasal spray ml budesonide-formoterol HFA 160 2 puff INHALATION QID PRN 90 Days 05/29/21 mcg-4.5 mcg/actuation aerosol #10.2 g inhaler fluticasone propionate 50 1 spray INTRANASAL DAILY 90 Days 05/29/21 mcg/actuation nasal #16 g spray,suspension Amoxicillin/Potassium Clav 500 mg PO TID #30 tab 09/26/21 [Augmentin 500mg tab] Allergies Allergy/AdvReac Type Severity Reaction Status Date / Time No Known Allergies Allergy Verified 09/28/21 14:01 - Worker's Comp Is this a Worker's Comp case?: No [facility] History - Hepatitis A Screen Attestation statement:: This patient has been screened for Hepatitis A risk factors. I have reviewed the patient's past medical history: Yes Medical History: Reports:: Hypertension Denies:: Cancer, Diabetes Mellitus Type 1, Diabetes Mellitus Type 2, MRSA Other Surgeries: Yes: No Previous Surgery - Social History Smoking Status: Never smoker Alcohol Intake: current Alcohol Intake Frequency:: a few times a month Substance Use Type: denies use Occupational Status: other Family Hx:: Cancer, Heart Attack, Diabetes, Thyroid Disorder ROS Obtained: Yes All systems reviewed & no additional complaints - Constitutional Constitutional: Denies chills, Denies fever(s) - Eyes Eyes: Denies blurry vision, Denies change in vision
[2021-09-28 14:55] VITALS: BP 141/85; PULSE 89; RESP 16; TEMP 36.9
== END 2021-09-28 14:56 | disposition home or self-care (01) ==
PROVIDERS: Emergency Provider Nurse Practitioner Family; PCP Nurse Practitioner Family
DX: S69.90XD Unspecified injury of unspecified wrist, hand and finger(s), subsequent encounter (principal); Z23 Encounter for immunization
CPT/HCPCS: 90471; 90675; 99212; G0463

== ENCOUNTER 2021-10-02 12:56 | Outpatient (CLI) | payer MEDICAID, SELFPAY ==
[2021-10-02 13:15] VITALS: BP 148/89; PULSE 91; RESP 18; TEMP 36.5; O2SAT 98
== END 2021-10-02 13:30 | disposition home or self-care (01) ==
LOC: INF 12:57
PROVIDERS: PCP Nurse Practitioner Family; Visit Provider Nurse Practitioner Family
DX: Z23 Encounter for immunization (principal); W54.0XXS Bitten by dog, sequela
CPT/HCPCS: 90675; 96372

== ENCOUNTER 2021-10-09 12:58 | Outpatient (CLI) | payer MEDICAID, SELFPAY ==
[2021-10-09 13:21] VITALS: BP 148/96; PULSE 78; RESP 18; TEMP 36.2; O2SAT 98
== END 2021-10-09 13:33 | disposition home or self-care (01) ==
LOC: INF 12:59
PROVIDERS: PCP Nurse Practitioner Family; Visit Provider Nurse Practitioner Family
DX: Z23 Encounter for immunization (principal); W54.0XXS Bitten by dog, sequela
CPT/HCPCS: 90675; 96372

== ENCOUNTER 2021-10-09 13:22 | Emergency (ER) | payer MEDICAID, SELFPAY ==
[2021-10-09 13:25] VITALS: BP 131/74; PULSE 76; RESP 18; TEMP 36.6; O2SAT 99; BMI 31.2
[2021-10-09 13:30] VITALS: BP 131/74; PULSE 76; RESP 18; TEMP 36.6; O2SAT 99
== END 2021-10-09 13:35 | disposition home or self-care (01) ==
LOC: UTC 13:24
PROVIDERS: Emergency Provider Nurse Practitioner; PCP Nurse Practitioner Family
DX: S69.90XD Unspecified injury of unspecified wrist, hand and finger(s), subsequent encounter (principal)
CPT/HCPCS: 99211; G0463

== ENCOUNTER 2022-03-04 18:58 | Emergency (ER) | payer MEDICAID, SELFPAY ==
[2022-03-04] VITALS (7 sets, daily range): BP systolic 113–123; BP diastolic 64–76; PULSE 64–198; RESP 18–20; TEMP 36.8; O2SAT 95–99; BMI 29.9
--- NOTE | 2022-03-04 18:55 | ECG_ITS ---
APPROVED REPORT Exam: Resting ECG HR:194 bpm ECG Measurements Heart Rate 194 AXES QRSd 82 QRS 60 QT 231 T -72 QTc 329 Conclusion SUPRAVENTRICULAR TACHYCARDIA ST DEVIATION AND MODERATE T-WAVE ABNORMALITY, CONSIDER LATERAL ISCHEMIA [-0.1+ mV T-WAVE IN I/aVL/V5/V6] ST DEVIATION AND MODERATE T-WAVE ABNORMALITY, CONSIDER INFERIOR ISCHEMIA [-0.1+ mV T-WAVE IN II/aVF] CRITICAL TEST RESULT UNCONFIRMED REPORT Electronically signed by : Man Morse MD 03/05/2022 21:54:22
--- NOTE | 2022-03-04 19:02 | ECG_ITS ---
APPROVED REPORT Exam: Resting ECG HR:79 bpm ECG Measurements Heart Rate 79 AXES TX 137 P 26 QRSd 106 QRS -42 QT 352 T 24 QTc 386 Conclusion SINUS RHYTHM POSSIBLE RIGHT VENTRICULAR CONDUCTION DELAY [RSR (QR) IN V1/V2] POSSIBLE LEFT VENTRICULAR HYPERTROPHY [VOLTAGE CRITERIA PLUS LAE OR QRS WIDENING] ABNORMAL ECG INTERPRETATION BASED ON A DEFAULT AGE OF 40 YEARS UNCONFIRMED REPORT Electronically signed by : Man Morse MD 03/05/2022 21:54:13
--- NOTE | 2022-03-04 19:04 | XR_ITS ---
PROCEDURE INFORMATION: Exam: XR Chest Exam date and time: 03/04/2022 7:22 PM Age: 26 years old Clinical indication: Other: Svt TECHNIQUE: Imaging protocol: Radiologic exam of the chest. Views: 1 view. COMPARISON: CR XR CHEST 2V 03/18/2021 11:18 PM FINDINGS: Lungs: No evidence of pneumonia or interstitial edema. Pleural spaces: Unremarkable. No pleural effusion. No pneumothorax. Heart/Mediastinum: Unremarkable. No cardiomegaly. Bones/joints: Unremarkable. IMPRESSION: No evidence of pneumonia or interstitial edema.
--- NOTE | 2022-03-04 19:10 | HMH.EDGENADL ---
Discharge Plan Disposition Patient Disposition: Home, Self-Care Prescriptions Prescriptions: No Action lisinopril 20 mg tablet 20 mg PO DAILY Label Comments: TAKE 1 TABLET BY MOUTH DAILY hydrochlorothiazide 25 mg tablet 25 mg PO DAILY Label Comments: TAKE 1 TABLET BY MOUTH DAILY allopurinol 300 mg tablet 300 mg PO DAILY Label Comments: TAKE 1 TABLET BY MOUTH DAILY cetirizine [Zyrtec] 10 mg tablet 10 mg PO DAILY PRN (Reason: ALLERGIES) ergocalciferol (vitamin D2) 1,250 mcg (50,000 unit) capsule 1,250 mcg PO WEEKLY Label Comments: TAKE 1 CAPSULE BY MOUTH EVERY WEEK FOR 12 WEEKS levothyroxine 25 mcg capsule 25 mcg PO DAILY omega 2-jba-wtl-fish oil 250-350-1,000 mg capsule 1 cap PO DAILY budesonide-formoterol [Symbicort] 160-4.5 mcg/actuation HFA aerosol inhaler 2 puff IH QID PRN (Reason: shortness of breath or wheezing) 90 Days Qty: 10.2 3RF fluticasone propionate 16 GM spray,suspension 1 spray NS DAILY Rx Instructions: administer into each nostril azelastine 205.5 MCG/0.137 ML spray,non-aerosol 2 spray NS HS Rx Instructions: administer into each nostril Referrals Follow up/Referrals: Dilcia Abrams APRN [Primary Care Provider] - See instructions Clinical Impressions Clinical Impression: SVT (supraventricular tachycardia) Stand Alone Forms Stand Alone Forms: Work/School Release Instructions Patient Instructions: Paroxysmal Supraventricular Tachycardia, DI for Arrhythmias Discharge ED Provider: Nany Rainey General Adult HPI General Chief complaint: Arrhythmia/Palpitations Stated complaint: palpitations Time Seen by Provider: 03/04/22 19:11 Mode of Arrival: Ambulatory Source of Information: Patient Limitations: No Limitations History of Present Illness HPI narrative: Dana is a 26-year-old male past medical history for supraventricular tachycardia presenting to the emergency department for heart palpitations. Patient reports today he began to have heart palpitations with diaphoresis. On arrival patient has a heart rate of 195. Patient denies any chest pain, dyspnea. No nausea or vomiting. Patient denies any recent illness. Patient reports he used to take metoprolol however he was taken off it in July and his currently on HCTZ and lisinopril. Patient deneis fevers or other infectious symptoms. No LE swelling or pain. Diagnosed w/ COVID a few months prior. MD complaint: heart palpitations Onset (ago): hour(s) Related Data Home Medications Medication Instructions Recorded Confirmed allopurinol 300 mg tablet 300 mg PO DAILY GOUT 03/19/21 03/05/22 cetirizine 10 mg tablet (Zyrtec) 10 mg PO DAILY PRN ALLERGIES 03/19/21 03/05/22 hydrochlorothiazide 25 mg tablet 25 mg PO DAILY BLOOD PRESSURE 03/19/21 03/05/22 lisinopril 20 mg tablet 20 mg PO DAILY BLOOD PRESSURE 03/19/21 03/05/22 levothyroxine 25 mcg capsule 25 mcg PO DAILY THYROID 05/29/21 03/05/22 omega 3-dha 250 mg-epa 350 mg-fish 1 cap PO DAILY Supplement 05/29/21 03/05/22 oil 1,000 mg capsule azelastine 205.5 mcg (0.15 %) 2 spray intranasal HS ALLERGIES 10/09/21 03/05/22 nasal spray fluticasone propionate 50 1 spray intranasal DAILY ALLERGIES 10/09/21 03/05/22 mcg/actuation nasal spray,suspension ergocalciferol (vitamin D2) 1,250 1,250 mcg PO WEEKLY 10/21/21 03/05/22 mcg (50,000 unit) capsule Previous Rx's Medication Instructions Recorded budesonide-formoterol HFA 160 2 puff inhalation QID PRN 05/29/21 mcg-4.5 mcg/actuation aerosol shortness of breath or wheezing 90 inhaler (Symbicort) days #10.2 grams Allergies Allergy/AdvReac Type Severity Reaction Status Date / Time No Known Allergies Allergy Verified 10/21/21 10:23 [facility] Disclaimer: The information contained in this section may have been updated after the patient was seen, as this information can be updated by other users. Medical History (Reviewed 12
--- NOTE | 2022-03-04 19:12 | PC.NURSE ---
at bs pt hr decreased to 86 while talking to
[2022-03-04 19:24] LABS: Basophils # 0.1 K/mm3 (0-0.2); Basophils % 0.9 % (0.1-2.0); Eosinophils # 0.5 K/mm3 (0.0-0.4); Eosinophils % 4.3 % (0.1-12.0); Hematocrit 45.1 % (42.0-52.0); Hemoglobin 14.9 g/dL (14.1-18.0); Lymphocytes % 27.2 % (10-50); Mean Corpuscular HGB Conc 33.1 g/dL (31.8-35.4); Mean Corpuscular Hemoglobin 29.2 pg (27.0-31.2); Mean Corpuscular Volume 88.2 fl (80-94); Mean Platelet Volume 7.8 fl (7.4-10.4); Monocytes # 0.6 K/mm3 (0.1-1.0); Monocytes % 5.5 % (1.7-9.3); Neutrophils # 6.8 K/mm3 (1.8-7.8); Neutrophils % 62.2 % (37.0-80.0); Platelet Count 328 K/mm3 (142-424); Red Blood Count 5.11 M/mm3 (4.60-6.20); Red Cell Distribution Width 13.3 % (11.5-17.5); White Blood Count 10.9 K/mm3 (4.8-10.8)
[2022-03-04 19:44] LABS: Alanine Aminotransferase 28 U/L (12-78); Albumin Level 4.7 g/dl (3.5-5.0); Albumin/Globulin Ratio 1.6 (1.1-1.8); Alkaline Phosphatase 94 U/L (38-126); Anion Gap 12.6 mEq/L (5-15); Aspartate Amino Transferase 43 U/L (17-59); Bilirubin,Total 0.6 mg/dl (0.2-1.3); Blood Urea Nitrogen 17 mg/dl (9-20); Calcium 10.1 mg/dl (8.4-10.2); Carbon Dioxide 30 mmol/L (22.0-30.0); Chloride 101 mmol/L (98-107); Creatinine Clearance Estimated 154 mL/min (50-200); Estimated Glomerular Filt Rate 80 ml/min (>60); GFR (African American) 96 ML/MIN (>60); Globulin 2.9 g/dL (1.3-3.2); Glucose 72 mg/dl (74-100); Magnesium 1.9 mg/dl (1.6-2.3); Potassium 3.6 mmoL/L (3.5-5.1); Sodium 140 mmol/L (136-145); Total Protein,Serum 7.6 g/dl (6.3-8.2)
[2022-03-04 19:48] LABS: D-Dimer 0.52 ug/mL (0.0-0.5)
[2022-03-04 20:09] LABS: Troponin I < 0.01 ng/ml (0.00-0.034)
[2022-03-04 20:13] LABS: Thyroid Stimulating Hormone 4.54 uIU/mL (0.465-4.68)
== END 2022-03-04 21:08 | disposition home or self-care (01) ==
PROVIDERS: Emergency Provider Student in an Organized Health Care Education/Training Program; PCP Nurse Practitioner Family
DX: R00.2 Palpitations (principal); R06.02 Shortness of breath; R61 Generalized hyperhidrosis; Z86.16 Personal history of COVID-19; I47.1 Supraventricular tachycardia; J45.20 Mild intermittent asthma, uncomplicated; Z79.51 Long term (current) use of inhaled steroids; Z79.899 Other long term (current) drug therapy; Z82.49 Family history of ischemic heart disease and other diseases of the circulatory system; Z83.49 Family history of other endocrine, nutritional and metabolic diseases; Z83.3 Family history of diabetes mellitus; Z80.9 Family history of malignant neoplasm, unspecified
CPT/HCPCS: 71045; 80053; 83735; 84443; 84484; 85025; 85378; 93005; 99284

== ENCOUNTER 2022-06-22 20:32 | Emergency (ER) | payer OTHER, MEDICAID, SELFPAY ==
[2022-06-22] VITALS (8 sets, daily range): BP systolic 118–148; BP diastolic 69–92; PULSE 65–103; RESP 9–23; TEMP 36.4; O2SAT 94–100; BMI 34.3
--- NOTE | 2022-06-22 20:45 | ECG_ITS ---
APPROVED REPORT Exam: Resting ECG HR:74 bpm ECG Measurements Heart Rate 74 AXES OH 149 P 45 QRSd 95 QRS 35 QT 373 T 32 QTc 401 Conclusion SINUS RHYTHM WITH SINUS ARRHYTHMIA NONSPECIFIC T-WAVE ABNORMALITY BORDERLINE ECG UNCONFIRMED REPORT Electronically signed by : Man Morse MD 06/24/2022 03:06:46
--- NOTE | 2022-06-22 20:45 | XR_ITS ---
PROCEDURE INFORMATION: Exam: XR Chest Exam date and time: 06/22/2022 8:54 PM Age: 26 years old Clinical indication: Other: Dizzy; Additional info: Dizziness post heart ablation TECHNIQUE: Imaging protocol: Radiologic exam of the chest. Views: 2 views. COMPARISON: CR XR CHEST PORTABLE 03/04/2022 7:22 PM FINDINGS: Lungs: Unremarkable. No consolidation. Pleural spaces: Unremarkable. No pleural effusion. No pneumothorax. Heart/Mediastinum: Unremarkable. No cardiomegaly. Bones/joints: Unremarkable. IMPRESSION: No acute findings.
[2022-06-22 20:58] LABS: Basophils # 0.2 K/mm3 (0-0.2); Basophils % 1.3 % (0.1-2.0); Eosinophils # 0.5 K/mm3 (0.0-0.4); Eosinophils % 4.2 % (0.1-12.0); Hematocrit 48.4 % (42.0-52.0); Hemoglobin 16.5 g/dL (14.1-18.0); Lymphocytes # 2.9 K/mm3 (0.7-4.5); Lymphocytes % 24.8 % (10-50); Mean Corpuscular Hemoglobin 29.2 pg (27.0-31.2); Mean Corpuscular Volume 85.8 fl (80-94); Mean Platelet Volume 7.6 fl (7.4-10.4); Monocytes # 0.6 K/mm3 (0.1-1.0); Monocytes % 5.2 % (1.7-9.3); Neutrophils # 7.6 K/mm3 (1.8-7.8); Neutrophils % 64.6 % (37.0-80.0); Platelet Count 281 K/mm3 (142-424); Red Blood Count 5.64 M/mm3 (4.60-6.20); Red Cell Distribution Width 13.4 % (11.5-17.5); White Blood Count 11.8 K/mm3 (4.8-10.8)
[2022-06-22 21:19] LABS: Chloride 97 mmol/L (98-107)
[2022-06-22 21:20] LABS: Potassium 3.7 mmoL/L (3.5-5.1); Sodium 138 mmol/L (136-145)
--- NOTE | 2022-06-22 21:20 | CT_ITS ---
PROCEDURE INFORMATION: Exam: CT Head Without Contrast Exam date and time: 06/22/2022 9:42 PM Age: 26 years old Clinical indication: Dizziness TECHNIQUE: Imaging protocol: Computed tomography of the head without contrast. Radiation optimization: All CT scans at this facility use at least one of these dose optimization techniques: automated exposure control; mA and/or kV adjustment per patient size (includes targeted exams where dose is matched to clinical indication); or iterative reconstruction. REPORTING DATA: Count of CT and Cardiac NM exams in prior 12 months: This patient has received 0 known CTs and 0 known cardiac nuclear medicine studies in the 12 months prior to the current study. COMPARISON: No relevant prior studies available. FINDINGS: Brain: Normal. No hemorrhage. Unremarkable white matter. No mass effect. Cerebral ventricles: No ventriculomegaly. Paranasal sinuses: Visualized sinuses are unremarkable. No fluid levels. Mastoid air cells: Visualized mastoid air cells are well aerated. Bones/joints: Unremarkable. No acute fracture. Soft tissues: Unremarkable. IMPRESSION: No acute intracranial abnormality.
[2022-06-22 21:22] LABS: Alanine Aminotransferase 26 U/L (12-78); Alkaline Phosphatase 90 U/L (38-126); Anion Gap 13.7 mEq/L (5-15); Aspartate Amino Transferase 39 U/L (17-59); Bilirubin,Total 0.6 mg/dl (0.2-1.3); Blood Urea Nitrogen 17 mg/dl (9-20); Carbon Dioxide 31 mmol/L (22.0-30.0); Creatinine Clearance Estimated 194 mL/min (50-200); Estimated Glomerular Filt Rate 89 ml/min (>60); GFR (African American) 108 ML/MIN (>60)
[2022-06-22 21:23] LABS: Albumin/Globulin Ratio 1.4 (1.1-1.8); Calcium 9.9 mg/dl (8.4-10.2); Globulin 3.5 g/dL (1.3-3.2); Glucose 90 mg/dl (74-100); Total Protein,Serum 8.5 g/dl (6.3-8.2)
--- NOTE | 2022-06-22 21:23 | HMH.EDDIZZ ---
Discharge Plan Disposition Patient Disposition: Home, Self-Care Chief Complaint: Dizziness Prescriptions Prescriptions: No Action lisinopril 20 mg tablet 20 mg PO DAILY Label Comments: TAKE 1 TABLET BY MOUTH DAILY hydrochlorothiazide 25 mg tablet 25 mg PO DAILY Label Comments: TAKE 1 TABLET BY MOUTH DAILY allopurinol 300 mg tablet 300 mg PO DAILY Label Comments: TAKE 1 TABLET BY MOUTH DAILY cetirizine [Zyrtec] 10 mg tablet 10 mg PO DAILY PRN (Reason: ALLERGIES) ergocalciferol (vitamin D2) 1,250 mcg (50,000 unit) capsule 1,250 mcg PO WEEKLY Label Comments: TAKE 1 CAPSULE BY MOUTH EVERY WEEK FOR 12 WEEKS levothyroxine 25 mcg capsule 25 mcg PO DAILY omega 8-xxe-xen-fish oil 250-350-1,000 mg capsule 1 cap PO DAILY budesonide-formoterol [Symbicort] 160-4.5 mcg/actuation HFA aerosol inhaler 2 puff IH QID PRN (Reason: shortness of breath or wheezing) 90 Days Qty: 10.2 3RF fluticasone propionate 16 GM spray,suspension 1 spray NS DAILY Rx Instructions: administer into each nostril azelastine 205.5 MCG/0.137 ML spray,non-aerosol 2 spray NS HS Rx Instructions: administer into each nostril Referrals Follow up/Referrals: Dilcia Abrams APRN [Primary Care Provider] - See instructions Clinical Impressions Clinical Impression: Arm paresthesia, left, Dizziness Instructions Patient Instructions: Dizziness, Nonvertigo Discharge ED Provider: Jak (ED)Mark [facility] General Chief Complaint: Dizziness Stated Complaint: Left arm numb/palpitations Time Seen by Provider: 06/22/22 21:00 Mode of Arrival: Ambulatory Source of Information: Patient, Spouse and Medical Record Limitations: No Limitations Description of Symptoms (Recalled from ER Triage Doc. by RN): pt to ED with intermitten dizziness and left arm numbness since this morning. pt had a heart ablation on 06/17 without complications and denies any chest pain or SOB at this time History of Present Illness HPI Narrative: recent ht ablation on 06/17 and has had dizzyness occ since tonight assoc with tingling to lt upper ext with no other neuro sx, no speech or visual sx - no other sensory or motor sx MD complaint: dizziness and other (tingling lt upperext - mostly hand ) Onset (ago): hour(s) Timing: intermittent History of similar episodes: No History of trauma: No Severity: mild Associated symptoms: denies other symptoms Related Data Home Medications Medication Instructions Recorded Confirmed allopurinol 300 mg tablet 300 mg PO DAILY GOUT 03/19/21 03/05/22 cetirizine 10 mg tablet (Zyrtec) 10 mg PO DAILY PRN ALLERGIES 03/19/21 03/05/22 hydrochlorothiazide 25 mg tablet 25 mg PO DAILY BLOOD PRESSURE 03/19/21 03/05/22 lisinopril 20 mg tablet 20 mg PO DAILY BLOOD PRESSURE 03/19/21 03/05/22 levothyroxine 25 mcg capsule 25 mcg PO DAILY THYROID 05/29/21 03/05/22 omega 3-dha 250 mg-epa 350 mg-fish 1 cap PO DAILY Supplement 05/29/21 03/05/22 oil 1,000 mg capsule azelastine 205.5 mcg (0.15 %) 2 spray intranasal HS ALLERGIES 10/09/21 03/05/22 nasal spray fluticasone propionate 50 1 spray intranasal DAILY ALLERGIES 10/09/21 03/05/22 mcg/actuation nasal spray,suspension ergocalciferol (vitamin D2) 1,250 1,250 mcg PO WEEKLY 10/21/21 03/05/22 mcg (50,000 unit) capsule Previous Rx's Medication Instructions Recorded budesonide-formoterol HFA 160 2 puff inhalation QID PRN 05/29/21 mcg-4.5 mcg/actuation aerosol shortness of breath or wheezing 90 inhaler (Symbicort) days #10.2 grams Allergies Allergy/AdvReac Type Severity Reaction Status Date / Time No Known Allergies Allergy Verified 10/21/21 10:23 [facility] Disclaimer: The information contained in this section may have been updated after the patient was seen, as this information can be updated by other users. Medical History Abnormal electro
--- NOTE | 2022-06-22 21:32 | PC.NURSE ---
Rounded on pt. No needs or complaints voiced at this time. Call light within reach.
[2022-06-22 21:37] LABS: Troponin I < 0.01 ng/ml (0.00-0.034)
--- NOTE | 2022-06-22 21:39 | PC.NURSE ---
patient to radiology
--- NOTE | 2022-06-22 21:47 | PC.NURSE ---
patient back from xray
--- NOTE | 2022-06-22 22:05 | CT_ITS ---
PROCEDURE INFORMATION: Exam: CTA Neck With Contrast Exam date and time: 06/22/2022 10:39 PM Age: 26 years old Clinical indication: Dizziness and giddiness TECHNIQUE: Imaging protocol: Computed tomographic angiography of the neck with contrast. 3D rendering (Not supervised by radiologist): MIP and/or 3D reconstructed images were created by the technologist. Radiation optimization: All CT scans at this facility use at least one of these dose optimization techniques: automated exposure control; mA and/or kV adjustment per patient size (includes targeted exams where dose is matched to clinical indication); or iterative reconstruction. Contrast material: ISOVUE; Contrast volume: 75 ml; Contrast route: INTRAVENOUS (IV); REPORTING DATA: Count of CT and Cardiac NM exams in prior 12 months: This patient has received 2 known CTs and 0 known cardiac nuclear medicine studies in the 12 months prior to the current study. COMPARISON: CT HEAD/BRAIN WO CON 06/22/2022 9:42 PM FINDINGS: Right common carotid artery: No stenosis. No dissection or occlusion. Right internal carotid artery: No stenosis of the extracranial segment. No dissection or occlusion. Right external carotid artery: No occlusion or stenosis of the origin. Left common carotid artery: No stenosis. No dissection or occlusion. Left internal carotid artery: No stenosis of the extracranial segment. No dissection or occlusion. Left external carotid artery: No occlusion or stenosis of the origin. Right vertebral artery: No stenosis. No dissection or occlusion. Left vertebral artery: No stenosis. No dissection or occlusion. Soft tissues: Normal. No significant soft tissue swelling. Bones/joints: No acute fracture. IMPRESSION: No stenosis or occlusion. REFERENCES: NASCET CRITERIA. The degree of stenosis in the cervical segment of the internal carotid artery is based on NASCET criteria. Normal is no stenosis. Mild is less than 50% stenosis. Moderate is 50-69% stenosis. Severe is 70% to 99% stenosis. Total occlusion is no detectable patent lumen.
--- NOTE | 2022-06-22 22:05 | CT_ITS ---
PROCEDURE INFORMATION: Exam: CTA Head With Contrast, Arteriography Exam date and time: 06/22/2022 10:39 PM Age: 26 years old Clinical indication: Dizziness and giddiness TECHNIQUE: Imaging protocol: Computed tomographic angiography of the head with contrast. Exam focused on the arteries. 3D rendering (Not supervised by radiologist): MIP and/or 3D reconstructed images were created by the technologist. Radiation optimization: All CT scans at this facility use at least one of these dose optimization techniques: automated exposure control; mA and/or kV adjustment per patient size (includes targeted exams where dose is matched to clinical indication); or iterative reconstruction. Contrast material: ISOVUE; Contrast volume: 100 ml; Contrast route: INTRAVENOUS (IV); REPORTING DATA: Count of CT and Cardiac NM exams in prior 12 months: This patient has received 2 known CTs and 0 known cardiac nuclear medicine studies in the 12 months prior to the current study. COMPARISON: CT HEAD/BRAIN WO CON 06/22/2022 9:42 PM FINDINGS: ANTERIOR CIRCULATION: Right internal carotid artery: Intracranial segment is patent with no significant stenosis. No aneurysm. Right middle cerebral artery: No occlusion or significant stenosis. No aneurysm. Right anterior cerebral artery: No occlusion or significant stenosis. No aneurysm. Left internal carotid artery: Intracranial segment is patent with no significant stenosis. No aneurysm. Left middle cerebral artery: No occlusion or significant stenosis. No aneurysm. Left anterior cerebral artery: No occlusion or significant stenosis. No aneurysm. POSTERIOR CIRCULATION: Right vertebral artery: No occlusion or significant stenosis. No aneurysm. Left vertebral artery: No occlusion or significant stenosis. No aneurysm. Basilar artery: No occlusion or significant stenosis. No aneurysm. Right posterior cerebral artery: No occlusion or significant stenosis. No aneurysm. Left posterior cerebral artery: No occlusion or significant stenosis. No aneurysm. Brain: No definite mass, mass effect, or midline shift. Cerebral ventricles: No ventriculomegaly. Bones/joints: Unremarkable. No acute fracture. Soft tissues: Unremarkable. IMPRESSION: No large vessel stenosis or occlusion.
--- NOTE | 2022-06-22 22:44 | PC.NURSE ---
Pt back from RAD via stretcher
[2022-06-23] VITALS: BP 125/81; PULSE 67; RESP 14; O2SAT 97
[2022-06-23 00:07] VITALS: BP 124/78; PULSE 61; RESP 16; TEMP 36.4; O2SAT 96
== END 2022-06-23 00:09 | disposition home or self-care (01) ==
PROVIDERS: Emergency Provider Emergency Medicine; PCP Nurse Practitioner Family
DX: R20.2 Paresthesia of skin (principal); R42 Dizziness and giddiness
CPT/HCPCS: 70450; 70496; 70498; 71046; 80053; 84484; 85025; 93005; 96360; 99284; 99285; Q9967

== ENCOUNTER 2022-11-20 08:31 | Emergency (ER) | payer OTHER, SELFPAY ==
[2022-11-20 08:32] VITALS: BP 155/98; PULSE 89; RESP 16; TEMP 36.8; O2SAT 99; BMI 29.9
--- NOTE | 2022-11-20 08:45 | XR_ITS ---
FINAL REPORT CLINICAL HISTORY: pain after weight lifting, difficulty bearing weig FINDINGS: Left knee Three views were obtained. There is no acute fracture or dislocation. The joint spaces appear normal. No soft tissue abnormality is identified. IMPRESSION: No acute process. Reviewed, Interpreted and Dictated by Joe Moraes MD Transcribed by Miriam Rivas Authenticated and [facility]
--- NOTE | 2022-11-20 08:45 | XR_ITS ---
FINAL REPORT CLINICAL HISTORY: pain after weight lifting, difficulty bearing weig FINDINGS: Left tibia fibula Two views were obtained. There is no acute fracture or dislocation. The joint spaces appear normal. No soft tissue abnormality is identified. There is a moderate plantar spur. IMPRESSION: No acute process. Reviewed, Interpreted and Dictated by Joe Moraes MD Transcribed by Miriam Rivas Authenticated and . [facility]
--- NOTE | 2022-11-20 08:52 | HMH.EDGENADL ---
Discharge Plan Disposition Patient Disposition: Home, Self-Care Condition: Good Prescriptions Prescriptions: New naproxen 500 mg tablet 500 mg PO Q12H PRN (Reason: pain) Qty: 20 0RF No Action lisinopril 20 mg tablet 20 mg PO DAILY Patient Comments: TAKE 1 TABLET BY MOUTH DAILY hydrochlorothiazide 25 mg tablet 25 mg PO DAILY Patient Comments: TAKE 1 TABLET BY MOUTH DAILY allopurinol 300 mg tablet 300 mg PO DAILY Patient Comments: TAKE 1 TABLET BY MOUTH DAILY cetirizine [Zyrtec] 10 mg tablet 10 mg PO DAILY PRN (Reason: ALLERGIES) ergocalciferol (vitamin D2) 1,250 mcg (50,000 unit) capsule 1,250 mcg PO WEEKLY Patient Comments: TAKE 1 CAPSULE BY MOUTH EVERY WEEK FOR 12 WEEKS levothyroxine 25 mcg capsule 25 mcg PO DAILY omega 8-fgu-pdx-fish oil 250-350-1,000 mg capsule 1 cap PO DAILY budesonide-formoterol [Symbicort] 160-4.5 mcg/actuation HFA aerosol inhaler 2 puff IH QID PRN (Reason: shortness of breath or wheezing) 90 Days Qty: 10.2 3RF fluticasone propionate 16 GM spray,suspension 1 spray NS DAILY Rx Instructions: administer into each nostril azelastine 205.5 MCG/0.137 ML spray,non-aerosol 2 spray NS HS Rx Instructions: administer into each nostril Referrals Follow up/Referrals: Giovani Esqueda JR, MD [Physician] - See instructions Dilcia Abrams APRN [Primary Care Provider] - See instructions Activity Restrictions/Add. Instructions Additional Instructions/Restrictions: You were evaluated in the emergency department today. Please follow-up closely with orthopedics for continued pain. We are providing you with the phone number for Dr. Esqueda. Use your crutches as needed for pain and difficulty bearing weight. Rest, ice, and elevate the area. Keep compression on the knee to reduce swelling. Return to the emergency department for any new or worsening symptoms. Clinical Impressions Clinical Impression: Acute pain of left knee Stand Alone Forms Stand Alone Forms: Work/School Release Instructions Patient Instructions: DI for Knee Pain Discharge ED Provider: Regina Branham General Adult HPI General Chief complaint: Extremity Injury, Lower Stated complaint: Lt knee pain, swollen, no accident Time Seen by Provider: 11/20/22 08:39 Mode of Arrival: Ambulatory Source of Information: Patient Limitations: No Limitations Description of Symptoms (Recalled from ER Triage Doc. by RN): Pt c/o L knee pain, pt reports pain began approx 7pm lastnight. Pt reports no known injury, reports works outs out daily, no known injury during work out. Pt reports L knee feels swollen, painful with weight bearing and movement. States last dose of medication was ibuprofen at 3am today History of Present Illness HPI narrative: This patient is a 27-year-old male who reports a history of left knee dislocation in the past presenting to the emergency department for evaluation with concern for left knee pain. Patient reports that he was lifting weights last night around 7:00 PM. He felt some discomfort in his left knee, however it was not bad. No significant mechanism of injury noted. He woke up at midnight with worse discomfort, and then by 3 AM the pain was severe. He took ibuprofen around 3 AM with minimal improvement. Pain is aching and nonradiating. He has difficulty bearing weight and moving the knee secondary to pain. He denies any fevers, chills, or other concerns. No history of drug use or septic arthritis. Related Data Home Medications Medication Instructions Recorded Confirmed allopurinol 300 mg tablet 300 mg PO DAILY GOUT 03/19/21 03/05/22 cetirizine 10 mg tablet (Zyrtec) 10 mg PO DAILY PRN ALLERGIES 03/19/21 03/05/22 hydrochlorothiazide 25 mg tablet 25 mg PO DAILY BLOOD PRESSURE 03/19/21 03/05/22 lisinopril 20 mg tablet 20 mg PO DAILY BLOOD PRESSURE 03/19/21 03/05/22 levothyroxine 25 mcg capsule 25 mcg PO DAILY T
[2022-11-20 09:00] VITALS: BP 143/92; PULSE 85; O2SAT 97
--- NOTE | 2022-11-20 09:00 | PC.NURSE ---
rounded on pt at this time. gave urinal and educated that we need a urine sample
[2022-11-20 09:30] VITALS: BP 142/69; PULSE 81; O2SAT 97
[2022-11-20 10:00] VITALS: BP 127/73; PULSE 68; O2SAT 98
[2022-11-20 10:30] VITALS: BP 121/75; PULSE 74; O2SAT 98
[2022-11-20 10:45] VITALS: BP 121/75; PULSE 80; RESP 18; TEMP 36.8
== END 2022-11-20 10:46 | disposition home or self-care (01) ==
PROVIDERS: Emergency Provider Emergency Medicine; PCP Nurse Practitioner Family
DX: M25.562 Pain in left knee (principal); X50.0XXA Overexertion from strenuous movement or load, initial encounter; J30.9 Allergic rhinitis, unspecified
CPT/HCPCS: 73562; 73590; 99283

== ENCOUNTER 2023-03-18 09:09 | Emergency (ER) | payer OTHER, SELFPAY ==
--- NOTE | 2023-03-18 09:29 | EXP.UTC ---
Discharge Plan Disposition Patient Disposition: Home, Self-Care Condition: Good Prescriptions Prescriptions: New ibuprofen [IBU] 800 mg tablet 800 mg PO Q8HP PRN (Reason: Moderate Pain) Qty: 30 0RF benzonatate [benzonatate] 100 mg capsule 100 mg PO TIDP PRN (Reason: Cough) Qty: 30 0RF ondansetron 4 mg Tablet,Disintegrating 4 mg PO Q8H PRN (Reason: Nausea) Qty: 12 0RF No Action lisinopril 20 mg tablet 20 mg PO DAILY Patient Comments: TAKE 1 TABLET BY MOUTH DAILY hydrochlorothiazide 25 mg tablet 25 mg PO DAILY Patient Comments: TAKE 1 TABLET BY MOUTH DAILY cetirizine [Zyrtec] 10 mg tablet 10 mg PO DAILY PRN (Reason: ALLERGIES) ergocalciferol (vitamin D2) 1,250 mcg (50,000 unit) capsule 1,250 mcg PO WEEKLY Patient Comments: TAKE 1 CAPSULE BY MOUTH EVERY WEEK FOR 12 WEEKS levothyroxine 25 mcg capsule 25 mcg PO DAILY omega 4-czq-ghx-fish oil 250-350-1,000 mg capsule 1 cap PO DAILY Referrals Follow up/Referrals: Dilcia Abrams APRN [Primary Care Provider] - See instructions Activity Restrictions/Add. Instructions Additional Instructions/Restrictions: Drink plenty of fluids. Take the medications as directed. Follow up with your regular doctor. GO TO THE ER FOR ANY WORSENING SYMPTOMS Clinical Impressions Clinical Impression: Acute viral syndrome, Exposure to 2019 novel coronavirus Stand Alone Forms Stand Alone Forms: Work/School Release Instructions Patient Instructions: DI for Viral Syndrome, Coronavirus Disease 2019, Preventing the Spread of Coronavirus Discharge Instructions Discharge ED Provider: Dk Smith [facility] General Stated complaint: body aches, congestion Time Seen by Provider: 03/18/23 09:28 History of Present Illness Provider Complaint: He states that he has had body aches, chills, and malaise since yesterday. He has been exposed to both flu and covid-19 at his workplace over the past 1 week. Related Data Home Medications Medication Instructions Recorded Confirmed cetirizine 10 mg tablet (Zyrtec) 10 mg PO DAILY PRN ALLERGIES 03/19/21 03/05/22 hydrochlorothiazide 25 mg tablet 25 mg PO DAILY BLOOD PRESSURE 03/19/21 03/18/23 lisinopril 20 mg tablet 20 mg PO DAILY BLOOD PRESSURE 03/19/21 03/18/23 levothyroxine 25 mcg capsule 25 mcg PO DAILY THYROID 05/29/21 03/18/23 omega 3-dha 250 mg-epa 350 mg-fish 1 cap PO DAILY Supplement 05/29/21 03/05/22 oil 1,000 mg capsule ergocalciferol (vitamin D2) 1,250 1,250 mcg PO WEEKLY 10/21/21 03/05/22 mcg (50,000 unit) capsule Previous Rx's Medication Instructions Recorded benzonatate 100 mg capsule 100 mg PO TIDP PRN Cough #30 caps 03/18/23 ibuprofen 800 mg tablet (IBU) 800 mg PO Q8HP PRN Moderate Pain 03/18/23 #30 tabs ondansetron 4 mg disintegrating 4 mg PO Q8H PRN Nausea #12 tabs 03/18/23 tablet Allergies Allergy/AdvReac Type Severity Reaction Status Date / Time No Known Allergies Allergy Verified 03/18/23 09:49 [facility] Disclaimer: The information contained in this section may have been updated after the patient was seen, as this information can be updated by other users. Medical History Abnormal electrocardiography Allergic rhinitis, unspecified Dyspnea Dyspnea on exertion Mild intermittent asthma Palpitations Seasonal allergic rhinitis Surgical History No history of previous surgery Family History Other Cancer Diabetes Heart attack Thyroid disorder Social History Smoking Status: Never smoker alcohol intake: current substance use type: denies use current occupational status: other Travel in the last 8 weeks: Inside the [place] ROS Obtained: Yes All systems reviewed & no additional compl
[2023-03-18 09:40] VITALS: BP 131/89; PULSE 101; RESP 19; TEMP 37.1; O2SAT 100; BMI 29.9
[2023-03-18 10:03] LABS: UTC Influenza A Antigen Negative (Negative); UTC Influenza B Antigen Negative (Negative)
[2023-03-18 10:13] VITALS: BP 131/89; PULSE 101; RESP 18; TEMP 37.1; O2SAT 100
== END 2023-03-18 10:13 | disposition home or self-care (01) ==
PROVIDERS: Emergency Provider Nurse Practitioner Family; PCP Nurse Practitioner Family
DX: R05.9 Cough, unspecified (principal); R09.81 Nasal congestion; R50.9 Fever, unspecified; M79.18 Myalgia, other site; R53.81 Other malaise; B34.9 Viral infection, unspecified; Z20.822 Contact with and (suspected) exposure to COVID-19
CPT/HCPCS: 87635; 87804; 99212; 99214; G0463

== ENCOUNTER 2023-12-03 18:06 | Emergency (ER) | payer BC, SELFPAY ==
[2023-12-03 18:25] VITALS: BP 143/60; PULSE 74; RESP 18; TEMP 36.4; O2SAT 100; BMI 29.9
--- NOTE | 2023-12-03 18:47 | ED_ITS ---
Discharge Plan Disposition Patient Disposition: Home, Self-Care Condition: Good Prescriptions Prescriptions: New levothyroxine 50 mcg capsule 50 mcg PO DAILY Qty: 30 0RF No Action lisinopril 20 mg tablet 20 mg PO DAILY levothyroxine 50 mcg tablet 50 mcg PO DAILY Patient Comments: TAKE 1 CAPSULE BY MOUTH ONCE DAILY IN THE MORNING 2 HOURS PRIOR TO FOOD OR OTHER MEDICATIONS hydrochlorothiazide 25 mg tablet 25 mg PO DAILY Referrals Follow up/Referrals: Dilcia Abrams APRN [Primary Care Provider] - See instructions Activity Restrictions/Add. Instructions Additional Instructions/Restrictions: Make appointment with your PCP to get refills on your medication Take medication as prescribed Return if needed Clinical Impressions Clinical Impression: Encounter for medication refill Instructions Patient Instructions: Levothyroxine Print Language Print Language: Hungarian Discharge ED Provider: Florence Soto [facility] HPI General Stated complaint: out of meds Mode of Arrival: Ambulatory Source of Information: Patient Limitations: No Limitations Time Seen by Provider: 12/03/23 18:51 Description of Symptoms (Recalled from Triage Doc. by RN): PATIENT NEEDING A REFILL ON HIS THYROID MEDICATION HEENT Symptoms (Recalled from RN notes): No Resp Symptoms (Recalled from RN notes): No Skin Symptoms (Recalled from RN notes): No MS Symptoms (Recalled from RN notes): No Functional Status (Recalled from RN notes): WNL History of Present Illness Provider Complaint: Patient states that he is needing a refill on his thyroid medication until he can get appointment with his PCP States he got a new promotion at work and has been busy and didnt realize he was about to run out of medication Related Data Home Medications ?Medication ?Instructions ?Recorded ?Confirmed hydrochlorothiazide 25 mg tablet 25 mg PO DAILY 12/03/23 12/03/23 levothyroxine 50 mcg tablet 50 mcg PO DAILY 12/03/23 12/03/23 lisinopril 20 mg tablet 20 mg PO DAILY 12/03/23 12/03/23 Previous Rx's ?Medication ?Instructions ?Recorded levothyroxine 50 mcg capsule 50 mcg PO DAILY #30 caps 12/03/23 Allergies Allergy/AdvReac Type Severity Reaction Status Date / Time No Known Allergies Allergy Verified 03/18/23 09:49 Worker's Comp Is this a Worker's Comp case?: No [facility] Disclaimer: The information contained in this section may have been updated after the patient was seen, as this information can be updated by other users. Medical History Abnormal electrocardiography Allergic rhinitis, unspecified Dyspnea Dyspnea on exertion Mild intermittent asthma Palpitations Seasonal allergic rhinitis Surgical History No history of previous surgery Family History Other Cancer Diabetes Heart attack Thyroid disorder Social History Smoking Status: Never smoker alcohol intake: current alcohol intake frequency: a few times a month substance use type: denies use current occupational status: other Travel in the last 8 weeks: Inside the [place] ROS Obtained: Yes All systems reviewed & no additional complaints except as documented and Yes Systems reviewed as appropriate & no additional complaints except as documented Constitutional Constitutional: Reports system reviewed and no additional complaints, except as documented and Reports as per HPI ENT Ears, Nose, Mouth, and Throat: Reports system reviewed and no additional complaints, except as documented and Reports as per HPI Cardiovascular Cardiovascular: Reports system reviewed and no additional complaints, except as documented and Reports as per HPI Respiratory Respiratory: Reports system reviewed and no additional complaints, except as documented and Reports as per HPI Gastrointestinal Gastrointestingal: Reports system reviewed and no additional complaints, except as documented and as per HPI Physical Exam General General appearance: alert and in no apparent distress ENT ENT exam: Present mucous membranes moist Respiratory Respiratory exam: Present normal lung sounds bilaterally; Absent respiratory distress or wheezes Cardiovascular Cardiovascular exam: Present regular rate, normal rhythm and normal heart sounds Neurological Exam Neurological exam: Present alert, oriented X3 and normal gait Medical Decision Making Marcus Inquiry Pt receiving controlled substance: No Marcus was queried for this patient: No Vital Signs: 12/03/23 18:25 Temperature 97.6 F Temperature Source Oral Pulse Rate [Left Brachial] 74 Respiratory Rate 18 Blood Pressure [Left Arm] 143/60 H Blood Pressure Mean [Left Arm] 87 Blood Pressure Source [Left Arm] Automatic Cuff Blood Pressure Position [Left Arm] Sitting 02 Sat by Pulse Oximetry 100 Oxygen Delivery Method Room Air
[2023-12-03 18:55] VITALS: BP 143/60; PULSE 74; RESP 18; TEMP 36.4; O2SAT 100
== END 2023-12-03 18:57 | disposition home or self-care (01) ==
PROVIDERS: Emergency Provider Nurse Practitioner; PCP Nurse Practitioner Family
DX: Z76.0 Encounter for issue of repeat prescription (principal)
CPT/HCPCS: 99211; 99212; G0463

== ENCOUNTER 2024-05-22 12:33 | Emergency (ER) | payer BC, SELFPAY ==
[2024-05-22 12:35] VITALS: BP 144/95; PULSE 114; RESP 20; TEMP 36.6; O2SAT 97; BMI 28.7
--- NOTE | 2024-05-22 12:43 | XR_ITS ---
PROCEDURE INFORMATION: Exam: XR Left Knee Exam date and time: 05/22/2024 12:54 PM Age: 28 years old Clinical indication: Injury or trauma; Fall; Blunt trauma; Knee; Left TECHNIQUE: Imaging protocol: Radiologic exam of the left knee. Views: 3 views. COMPARISON: CR XR KNEE LT 3V 11/20/2022 8:58 AM FINDINGS: Bones/joints: Patellar tendon enthesophyte. Soft tissues: Quadriceps enthesophyte. IMPRESSION: No acute findings.
--- NOTE | 2024-05-22 12:43 | XR_ITS ---
PROCEDURE INFORMATION: Exam: XR Left Tibia and Fibula Exam date and time: 05/22/2024 12:54 PM Age: 28 years old Clinical indication: Injury or trauma; Fall; Blunt trauma; Lower leg; Left TECHNIQUE: Imaging protocol: Radiologic exam of the left tibia and fibula. Views: 2 views. COMPARISON: CR XR TIBIA FIBULA LT 2V 05/22/2024 12:54 PM FINDINGS: Bones/joints: Heel spur. Enthesophyte of the quadriceps tendon. Soft tissues: Normal. IMPRESSION: No acute findings.
--- NOTE | 2024-05-22 13:02 | ED_ITS ---
Discharge Plan Disposition Patient Disposition: Home, Self-Care Chief Complaint: Extremity Injury, Lower Prescriptions Prescriptions: No Action lisinopril 20 mg tablet 20 mg PO DAILY levothyroxine 50 mcg tablet 50 mcg PO DAILY Patient Comments: TAKE 1 CAPSULE BY MOUTH ONCE DAILY IN THE MORNING 2 HOURS PRIOR TO FOOD OR OTHER MEDICATIONS hydrochlorothiazide 25 mg tablet 25 mg PO DAILY Referrals Follow up/Referrals: Dilcia Abrams APRN [Primary Care Provider] - See instructions Brian Way DO [Staff Physician] - See instructions Activity Restrictions/Add. Instructions Additional Instructions/Restrictions: At this time it was felt you are safe to be discharged home. If new or worsening symptoms please do not hesitate to return the emergency department. Please call and schedule appoint with Dr. Way as soon as you are able and bear weight as tolerated while using crutches. For pain please take Tylenol and ibuprofen every 6 hours at the same time with a little bit of food. I did not see any broken bones on your x-ray today, if the radiologist reads them is broken I will call you personally. Clinical Impressions Clinical Impression: Acute leg pain, Fall, Knee swelling Print Language Print Language: Macanese Discharge ED Provider: Brent Gonzalez General Adult HPI General Chief complaint: Extremity Injury, Lower Stated complaint: AO Fall left knee/leg pain sweeling Time Seen by Provider: 05/22/24 12:41 Mode of Arrival: Wheelchair Source of Information: Patient and Significant Other Limitations: No Limitations Description of Symptoms (Recalled from ER Triage Doc. by RN): pt had left knee injury on the , fell coming into hospital and now has more pain and swelling has never had any prior images done or seen an ortho doc before History of Present Illness HPI narrative: Patient is a 28-year-old male with no pertinent past medical history presents emergency department for evaluation of trauma. Patient slipped on the ice and fell on his left lower extremity resulting in pain over his proximal lateral calf coursing around the side of his knee. Onset was acute, occurring approximately 1 week ago. No other trauma. He has had limited ability to bear weight since and has been on crutches. No other acute complaints at this time. Related Data Home Medications ?Medication ?Instructions ?Recorded ?Confirmed hydrochlorothiazide 25 mg tablet 25 mg PO DAILY 12/03/23 05/22/24 levothyroxine 50 mcg tablet 50 mcg PO DAILY 12/03/23 05/22/24 lisinopril 20 mg tablet 20 mg PO DAILY 12/03/23 05/22/24 Allergies Allergy/AdvReac Type Severity Reaction Status Date / Time tramadol Allergy Nightmare Verified 05/22/24 12:51 [facility] Disclaimer: The information contained in this section may have been updated after the elias casillas was seen, as this information can be updated by other users. Medical History Abnormal electrocardiography Allergic rhinitis, unspecified Dyspnea Dyspnea on exertion Mild intermittent asthma Palpitations Seasonal allergic rhinitis Surgical History No history of previous surgery Family History Other Cancer Diabetes Heart attack Thyroid disorder Social History Smoking Status: Never smoker alcohol intake: current alcohol intake frequency: a few times a month substance use type: denies use current occupational status: other Travel in the last 8 weeks: Inside the [place] Have you lived/traveled outside US in past 30 days?: No Contact w/someone who lives/traveled outside US past 30 days?: No Exposure to someone with infectious disease in past 14 days?: No Do you have a fever (greater than 100.4 F or 38 C)?: No Have you tested positive for COVID-19: No Exposed to someone with COVID-19 in past 14 days?: No Do you have a sore throat?: No Do you have a cough?: No Do you have any weakness?: No Do you have any diarrhea?: No Are you experiencing any unusual bleeding?: No Do you have any muscle aches/pain?: No Do you have any abdominal pain?: No Are you experiencing loss of taste or smell?: No Other Medical History Have you received the Flu Vaccine for this season: Yes Have you received the Pneumonia Vaccine: No ROS Obtained: Yes Systems reviewed as appropriate & no additional complaints except as documented Physical Exam General General appearance: alert Head Head exam: atraumatic and normocephalic Eye Eye exam: Present PERRL ENT ENT exam: Present mucous membranes moist Neck Neck exam: Present normal inspection Chest Chest inspection: Present normal inspection and symmetric chest wall rise Respiratory Respiratory exam: Absent respiratory distress Cardiovascular Cardiovascular exam: Present regular rate and normal rhythm Extremities Exam Extremities exam: Present other (Left knee is grossly swollen compared to the right, there is tenderness along the lateral aspect of the calf, compartments are soft. Palpable dorsal pedal pulse distally, extensor mechanism intact.) Neurological Exam Neurological exam: Present alert Psychiatric Psychiatric exam: Present normal affect Skin Skin exam: Present warm and dry Medical Decision Making Medical Records Screening: Per USPSTF and CDC recommendations, given the prevalence of disease in our region, it is our hospital?s policy to screen for HIV and viral Hepatitis for all patients aged 18 and over and those with ongoing risk factors. Marcus Inquiry Pt receiving controlled substance: No Vital Signs: 05/22/24 12:35 Temperature 98 F Temperature Source Oral Pulse Rate [Left Radial] 114 H Respiratory Rate 20 Blood Pressure [Right Arm] 144/95 H Blood Pressure Mean [Right Arm] 111 02 Sat by Pulse Oximetry 97 Oxygen Delivery Method Room Air Orders (Tests/Meds): ED MEDICATIONS Discontinued Medications Generic Name Dose Route Start Last Admin Trade Name Freq PRN Reason Stop Dose Admin Acetaminophen 1,000 mg 05/22/24 12:44 05/22/24 13:06 Acetaminophen 500mg Tab PO 05/22/24 12:45 1,000 mg ONCE ONE Administration Ibuprofen 800 mg 05/22/24 12:44 05/22/24 13:06 Ibuprofen 800 Mg Tablet PO 05/22/24 12:45 800 mg ONCE ONE Administration ORDERS Category Date Time Status Knee XR left 3 views [XR knee LT 3V] Stat Exams 05/22/24 12:43 Taken Tibia/fibula XR left 2 views [XR tibia fibula LT 2V] Exams 05/22/24 12:43 Taken Stat Medical Decision Narrative: In summary patient is a 28-year-old male past medical history described above presents emergency department for evaluation of traumatic lower extremity pain. Patient is hemodynamically stable nontoxic-appearing upon arrival, afebrile. Differential diagnosis includes fracture, musculoskeletal strain, ligamentous injury, among others. I have no concern for arterial injury based on mechanism and palpable dorsal pedal pulse. No concern for DVT based on history. His compartments are soft no concern for compartment syndrome. Given this limited workup and trauma survey will be conducted with plain films. Hematologic labs were considered but will be deferred. Initial inventions include Tylenol and ibuprofen. X-rays informally interpreted by me, no acute significantly displaced fracture or dislocation. Given this patient will be weightbearing as tolerated is appropriate for discharge at this time we will follow-up with Dr. Way on an outpatient basis. Critical Care Critical Care Time Critical Care Time: No
[2024-05-22] MEDS: IBUPROFEN 800 MG TABLET PO (13:06)
[2024-05-22] MEDS: ACETAMINOPHEN 500MG TAB 1000 MG PO (13:06)
[2024-05-22 13:16] VITALS: BP 140/80; PULSE 80; RESP 20; TEMP 36.8; O2SAT 98
== END 2024-05-22 13:17 | disposition home or self-care (01) ==
PROVIDERS: Emergency Provider Emergency Medicine; PCP Nurse Practitioner Family
DX: M25.462 Effusion, left knee (principal); M79.605 Pain in left leg; M25.562 Pain in left knee; W00.0XXA Fall on same level due to ice and snow, initial encounter; Y93.89 Activity, other specified; Y92.238 Other place in hospital as the place of occurrence of the external cause
CPT/HCPCS: 73562; 73590; 99283

== ENCOUNTER 2024-05-25 11:17 | Emergency (ER) | payer BC, SELFPAY ==
[2024-05-25 11:48] VITALS: BP 146/89; PULSE 90; RESP 18; TEMP 36.7; O2SAT 99; BMI 28.7
--- NOTE | 2024-05-25 14:02 | ED_ITS ---
Discharge Plan Disposition Patient Disposition: Home, Self-Care Condition: Good Prescriptions Prescriptions: No Action lisinopril 20 mg tablet 20 mg PO DAILY levothyroxine 50 mcg tablet 50 mcg PO DAILY Patient Comments: TAKE 1 CAPSULE BY MOUTH ONCE DAILY IN THE MORNING 2 HOURS PRIOR TO FOOD OR OTHER MEDICATIONS hydrochlorothiazide 25 mg tablet 25 mg PO DAILY Referrals Follow up/Referrals: Dilcia Abrams APRN [Primary Care Provider] - See instructions Activity Restrictions/Add. Instructions Additional Instructions/Restrictions: Return to the emergency department for any worsening signs or symptoms, continue to follow all of your other restrictions as tolerated, weight-bear as tolerated, ibuprofen Tylenol, compression elevation and rest as well as ice can be used for symptomatic relief. Please follow-up with orthopedic provider. Clinical Impressions Clinical Impression: Swelling of left foot, Knee swelling Stand Alone Forms Stand Alone Forms: Work/School Release Print Language Print Language: Amharic Discharge ED Provider: Gerber Mondragon General Adult HPI <TAWANDA Gaxiola - Last Filed: 05/25/24 14:10> General Chief complaint: Recheck/Abnormal Lab/Rx Stated complaint: swelling on top of feet Time Seen by Provider: 05/25/24 14:10 Mode of Arrival: Ambulatory Source of Information: Patient Limitations: No Limitations Description of Symptoms (Recalled from ER Triage Doc. by RN): PT REPORTS SWELLING OF LEFT ANKLE AND SWELLING TO THE TOPS OF BOTH FEET PT HAD A FALL ON THURSDAY WITH INJURY TO LEFT KNEE. NO LOSS OF SENSATION TO BILATERAL FEET. PULSES PALPABLE History of Present Illness HPI narrative: 28-year-old male presents to the emergency department with concern of bilateral feet swelling since this morning. Patient was recently seen in the emergency department on 05/22/2024, for evaluation of a slip and fall on ice, landing on his left lower extremity, he had some pain resulting over his proximal lateral calf around the lateral aspect of his knee, he was treated for this, negative plain film/trauma workup, was diagnosed with weightbearing as tolerated, patient denies any trauma per history this morning, has been ambulating/weightbearing as tolerated on crutches, he denies any fever chills chest pain shortness of breath, nausea vomiting constipation diarrhea no abdominal pain, no other acute symptomatology denies any numbness tingling upper or lower extremity weakness, he has been following his restrictions as previously prescribed/instructed, he has orthopedic follow-up. Patient tells me I really just need a work note today . 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 No history of substance use. Triage vitals unremarkable. No hot to touch sensation of his bilateral lower extremities, no signs or symptoms/concerns for infection at this time. Related Data Home Medications ?Medication ?Instructions ?Recorded ?Confirmed hydrochlorothiazide 25 mg tablet 25 mg PO DAILY 12/03/23 05/22/24 levothyroxine 50 mcg tablet 50 mcg PO DAILY 12/03/23 05/22/24 lisinopril 20 mg tablet 20 mg PO DAILY 12/03/23 05/22/24 Allergies Allergy/AdvReac Type Severity Reaction Status Date / Time tramadol Allergy Nightmare Verified 05/22/24 12:51 [facility] <TAWANDA Gaxiola - Last Filed: 05/25/24 14:10> [facility] Disclaimer: The information contained in this section may have been updated after the patient was seen, as this information can be updated by other users. Medical History Abnormal electrocardiography Allergic rhinitis, unspecified Dyspnea Dyspnea on exertion Mild intermittent asthma Palpitations Seasonal allergic rhinitis Surgical History No history of previous surgery Family History Other Cancer Diabetes Heart attack Thyroid disorder Social History Smoking Status: Never smoker alcohol intake: current alcohol intake frequency: a few times a month substance use type: denies use current occupational status: other Travel in the last 8 weeks: Inside the [place] Have you lived/traveled outside [place] in past 30 days?: No Contact w/someone who lives/traveled outside [place] past 30 days?: No Exposure to someone with infectious disease in past 14 days?: No Do you have a fever (greater than 100.4 F or 38 C)?: No Have you tested positive for COVID-19: No Exposed to someone with COVID-19 in past 14 days?: No Do you have a sore throat?: No Do you have a cough?: No Do you have any weakness?: No Do you have any diarrhea?: No Are you experiencing any unusual bleeding?: No Do you have any muscle aches/pain?: No Do you have any abdominal pain?: No Are you experiencing loss of taste or smell?: No Other Medical History Have you received the Flu Vaccine for this season: Yes Have you received the Pneumonia Vaccine: No <TAWANDA Gaxiola - Last Filed: 05/25/24 14:10> ROS Obtained: Yes All systems reviewed & no additional complaints except as documented Physical Exam <TAWANDA Gaxiola - Last Filed: 05/25/24 14:10> General General appearance: alert and in no apparent distress Head Head exam: atraumatic and normocephalic Eye Eye exam: Present PERRL and EOMI ENT ENT exam: Present mucous membranes moist Neck Neck exam: Present normal inspection Chest Chest inspection: Present normal inspection and symmetric chest wall rise Respiratory Respiratory exam: Present normal lung sounds bilaterally; Absent respiratory distress Cardiovascular Cardiovascular exam: Present regular rate and normal rhythm Abdominal Exam Abdominal exam: Present soft; Absent tenderness Extremities Exam Extremities exam: Present normal inspection, full ROM, normal capillary refill and other (Patient has 5 out of 5 strength in bilateral lower extremities, no gross sensation deficit, patient moves extremities to command, otherwise neurovascular intact, no soft tissue swelling, no edema, no erythema, no signs or symptoms of acute injury, compartments are soft.); Absent tenderness, edema, joint swelling or calf tenderness Neurological Exam Neurological exam: Present alert and oriented X3 Psychiatric Psychiatric exam: Present normal affect Skin Skin exam: Present warm and dry Medical Decision Making <TAWANDA Gaxiola - Last Filed: 05/25/24 14:10> Medical Records Medical records reviewed: Yes I reviewed the patient's medical records. Screening: Per USPSTF and CDC recommendations, given the prevalence of disease in our region, it is our hospital?s policy to screen for HIV and viral Hepatitis for all patients aged 18 and over and those with ongoing risk factors. Marcus Inquiry Pt receiving controlled substance: No Marcus was queried for this patient: No Vital Signs: 05/25/24 11:48 Temperature 98.0 F Temperature Source Oral Pulse Rate [Radial] 90 Respiratory Rate 18 Blood Pressure [Right Arm] 146/89 H Blood Pressure Mean [Right Arm] 108 Blood Pressure Source [Right Arm] Automatic Cuff Blood Pressure Position [Right Arm] Sitting 02 Sat by Pulse Oximetry 99 Oxygen Delivery Method Room Air Medical Decision Narrative: 28-year-old male presents the emergency department with bilateral feet swelling, differential diagnose, not limited to dependent edema, malingering, other soft tissue injury. Discussed patient case with attending physician Dr. Mondragon Patient has no other acute injury or trauma, operative laboratory studies/imaging and further workup to the patient, he declined at this time tells me I just really need a work note , I do not appreciate any erythema, no tenderness along the deep venous system, patient is Wells criteria negative, no pitting edema or soft tissue edema or swelling is present of the bilateral lower feet, there is very minimal soft tissue swelling about the knee corresponds with patient's previous knee sprain/strain/injury. He will continue to follow his restrictions/weightbearing as tolerated and crutches use for his left knee strain/sprain that was diagnosed 2 days ago after a fall. Without any other trauma, and no other acute symptomatology hide low concern for other pathology such as DVT, any further trauma, no concerns for CHF lymphedema, patient has no other risk factors. Shared decision-making was utilized. Patient could be discharged home to self-care. Recommend ibuprofen Tylenol, rest ice compression elevation continue to follow weightbearing/ambulating as tolerated previous instructions, follow-up with orthopedic provider/PCP as directed. Patient voiced understand agree with current treatment plan/discharge plan. <Gerber Mondragon MD - Last Filed: 05/25/24 14:12> Vital Signs: 05/25/24 11:48 Temperature 98.0 F Temperature Source Oral Pulse Rate [Radial] 90 Respiratory Rate 18 Blood Pressure [Right Arm] 146/89 H Blood Pressure Mean [Right Arm] 108 Blood Pressure Source [Right Arm] Automatic Cuff Blood Pressure Position [Right Arm] Sitting 02 Sat by Pulse Oximetry 99 Oxygen Delivery Method Room Air Medical Decision Narrative: 28-year-old male presents the emergency department with bilateral feet swelling, differential diagnose, not limited to dependent edema, malingering, other soft tissue injury. Discussed patient case with attending physician Dr. Mondragon Patient has no other acute injury or trauma, operative laboratory studies/imaging and further workup to the patient, he declined at this time tells me I just really need a work note , I do not appreciate any erythema, no tenderness along the deep venous system, patient is Wells criteria negative, no pitting edema or soft tissue edema or swelling is present of the bilateral lower feet, there is very minimal soft tissue swelling about the knee corresponds with patient's previous knee sprain/strain/injury. He will continue to follow his restrictions/weightbearing as tolerated and crutches use for his left knee strain/sprain that was diagnosed 2 days ago after a fall. Without any other trauma, and no other acute symptomatology hide low concern for other pathology such as DVT, any further trauma, no concerns for CHF lymphedema, patient has no other risk factors. Shared decision-making was utilized. Patient could be discharged home to self-care. Recommend ibuprofen Tylenol, rest ice compression elevation continue to follow weightbearing/ambulating as tolerated previous instructions, follow-up with orthopedic provider/PCP as directed. Patient voiced understand agree with current treatment plan/discharge plan. I was consulted by the [facility], and we discussed the complexity of the problems being addressed. I approved the treatment and management plan for this patient's care in the Emergency Department, thus performing a substantive portion of the medical decision making. Gerber Mondragon MD Critical Care <TAWANDA Gaxiola - Last Filed: 05/25/24 14:10> Critical Care Time Critical Care Time: No
[2024-05-25 14:16] VITALS: BP 146/89; PULSE 90; RESP 18; TEMP 36.7; O2SAT 99
== END 2024-05-25 14:17 | disposition home or self-care (01) ==
PROVIDERS: Emergency Provider Emergency Medicine; PCP Nurse Practitioner Family
DX: R22.41 Localized swelling, mass and lump, right lower limb (principal)
CPT/HCPCS: 99283